=== PATIENT | female | born 1925 | race Caucasian/White ===

== ENCOUNTER → 2016-08-14 | Outpatient (CLI) | payer OTHER ==
[~2016-08-14] MED LIST: ACET-1256 PO; ASPI1TAB83 PO; DOCU-94 PO; GLIM4TAB2 PO; INSDGIPEN SC; LEVO88TA PO; METF1TAB53 PO; METO50TA16 PO; NMN5 PO; NTRP PO; POLY335019 PO; PRAV20TA PO; REPA1TAB42 PO; SENN-61 PO; TRAM-10 PO; TRIA75TA53 PO; ZOLP5TAB PO
== END | disposition home or self-care (01) ==
LOC: C.LABSPEC 12:16
PROVIDERS: ATTEND Internal Medicine
DX: R19.7 Diarrhea, unspecified (principal)

== ENCOUNTER → 2016-09-10 | Outpatient (CLI) | payer OTHER ==
[2016-09-10 12:45] LABS: THYROID STIMULATING HORMONE 0.567 uIu/ml (0.300-4.500)
== END | disposition home or self-care (01) ==
LOC: C.LABBFT 10:21
PROVIDERS: ATTEND Internal Medicine
DX: E03.9 Hypothyroidism, unspecified (principal)

== ENCOUNTER 2016-09-22 11:16 | Inpatient (IN) | payer OTHER ==
[2016-09-22] VITALS (14 sets, daily range): BP systolic 70–94; BP diastolic 43–65; PULSE 81–104; TEMP 36.5; O2SAT 93–99
[~2016-09-22] VITALS: Ht 139.7 cm; Wt 69.0 kg
[2016-09-22] MEDS ORDERED: DOCU-94 PO (11:57)
[2016-09-22] MEDS ORDERED: INSDGIPEN SC (11:57)
[2016-09-22] MEDS ORDERED: METO50TA16 PO (11:57)
[2016-09-22] MEDS ORDERED: TRAM-10 PO (11:57)
[2016-09-22] MEDS ORDERED: NMN5 PO (11:57)
[2016-09-22] MEDS ORDERED: PRAV20TA PO (11:57)
[2016-09-22] MEDS ORDERED: POLY335019 PO (11:57)
[2016-09-22] MEDS ORDERED: TRIA75TA53 PO (11:57)
[2016-09-22] MEDS ORDERED: ASPI1TAB83 PO (11:57)
[2016-09-22] MEDS ORDERED: LEVO88TA PO (11:57)
[2016-09-22] MEDS ORDERED: GLIM4TAB2 PO (11:57)
[2016-09-22] MEDS ORDERED: ACET-1256 PO (11:57)
[2016-09-22] MEDS ORDERED: SENN-61 PO (11:57)
[2016-09-22] MEDS ORDERED: METF1TAB53 PO (11:57)
[2016-09-22] MEDS ORDERED: ZOLP5TAB PO (11:57)
[2016-09-22] MEDS ORDERED: ONDANSETRON INJ 2 MG/ML 2 ML VIAL IV STA (12:18)
[2016-09-22] MEDS ORDERED: SODIUM CHLORIDE 0.9% 1000ML 1,000 ML IV STA (12:18)
[2016-09-22 13:19] LABS: BASO % 0.1 %; BASO ABS # 0.01 K/uL (0-0.2); COMPLETE YES; HEMATOCRIT 47.9 % (37-47); IG% 0.4 %; LYMPH % 11.7 %; MEAN CORPUSCULAR HEMOGLOBIN 30.9 pg (25-34); MEAN CORPUSCULAR HGB CONC 34.7 g/dl (32-36); MEAN PLATELET VOLUME 9.9 fL (7.4-10.4); MONO % 11.7 %; NEUT % 76.1 %; PLATELET COUNT 463 K/uL (130-400); RED BLOOD COUNT 5.38 M/uL (4.2-5.4); WHITE BLOOD COUNT 11.07 K/uL (4.8-10.8)
--- NOTE | 2016-09-22 13:34 | DIAGNOSTIC IMAGING REPORT ---
ABDOMEN 2VIEW W/PA CHEST RTN CLINICAL HISTORY: Abdominal pain and nausea COMPARISON STUDY: No previous studies for comparison. FINDINGS: There are low lung volumes. There are surgical clips in both axillary regions. There is mild elevation right hemidiaphragm. No free air is visualized. Supine and decubitus views the abdomen reveal multiple dilated small bowel loops with multiple air-fluid levels. There is a paucity of colonic gas. The findings are indicative of a small bowel obstruction. There are eggshell calcifications within the left upper quadrant suggestive of splenic artery aneurysms. The largest measures 23 mm. IMPRESSION: 1. Small bowel obstructive pattern 2. No evidence of free air 3. Suspected splenic artery aneurysm Electronically signed by: Ahmet Kaur M.D. 09/22/2016 1:33 PM Dictated Date/Time: 09/22/2016 1:31 PM
[2016-09-22 13:37] LABS: BUN/CREATININE RATIO 35.1 (10-20); CALCIUM 8.1 mg/dl (8.5-10.1); CREATININE 2.1 mg/dl (0.60-1.20); POTASSIUM 5.1 mmol/L (3.5-5.1)
--- NOTE | 2016-09-22 14:14 | DIAGNOSTIC IMAGING REPORT ---
CT OF THE ABDOMEN AND PELVIS WITHOUT CONTRAST CLINICAL HISTORY: Abdominal pain. COMPARISON STUDY: No previous studies for comparison. TECHNIQUE: Axial images of the abdomen and pelvis were obtained without IV contrast. Images were reviewed in the axial, sagittal, and coronal planes. FINDINGS: Visualized portions of the lower chest demonstrate suspected post surgical finding within the right breast. There is mild cardiomegaly. This extensive coronary artery calcification. A small right pleural effusion is noted with associated atelectasis. No pneumatosis, free air or portal venous gas is present. 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 There is no evidence for rupture. A moderate sized hiatal hernia is noted. There is a 12.9 x 7.7 cm hypodense mass-like focus within the anterior segment of the right hepatic lobe and the medial segment of the left hepatic lobe. This is indeterminate. Geographic fatty infiltration is noted within the liver as well. A 2.2 cm lesion arising from the upper pole of the left kidney is suboptimally assessed on this unenhanced exam but this measures water attenuation. This may reflect a cyst. There is no hydronephrosis. Unenhanced images of the spleen, adrenal glands and pancreas are unremarkable. There are small bowel is fluid-filled and moderately dilated. Note is made of gas within the gallbladder as well as pneumobilia. There is a large impacted gallstone within the terminal ileum just proximal to the ileocecal valve that measures 3.1 x 2 cm. IMPRESSION: 1. Findings consistent with a high-grade small bowel obstruction due to an impacted gallstone within the terminal ileum, just proximal to the ileocecal valve. 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 The findings represent gallstone ileus. Surgical consultation is recommended. 2. 12.9 x 7.7 cm mass-like hypodense focus within the liver. This may reflect fatty infiltration. A mass could appear similar. A follow-up nonemergent MRI of the liver is recommended. 3. 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 No rupture. 4. Small right pleural effusion. 5. Moderate sized hiatal hernia. 6. Gas within the bladder, a nonspecific finding which may be related to recent instrumentation. Electronically signed by: Stefano Drew M.D. 09/22/2016 2:12 PM Dictated Date/Time: 09/22/2016 2:03 PM
[2016-09-22] MEDS ORDERED: SODIUM CHLORIDE 0.9% 500ML 500 ML IV STA (14:33)
[2016-09-22] MEDS ORDERED: DEXTROSE 5% 250ML 250 ML IV STA (14:41)
--- NOTE | 2016-09-22 14:41 | EMERGENCY ROOM VISIT NOTE ---
History Report prepared by Rachel: Tasha Chacko Under the Supervision of: Dr. Kali Leija D.O. First contact with patient: 12:09 Chief Complaint: ABDOMINAL PAIN Stated Complaint: ABDOMINAL PAIN Nursing Triage Summary: Patient arrives via ALS from home with complaints of right upper and lower abdominal pain, patient states pain is "crampy" and is a 5/10 during movement, 0/10 while laying still. PT has not had BM in a week, she has tried miralax and senna and nothing is working. She has also been lethargic, not eating/drinking well over the last week. History of Present Illness The patient is an 89 year old female who presents to the Emergency Room with complaints of intermittent right upper and right lower abdominal pain that began one week ago. She currently rates her discomfort as a 5/10 in severity. The patient states that each episode of pain lasts a few minutes. She describes her pain as an ache. The patient's son notes that the patient has not had a bowel movement in one week and has been vomiting every day for the past week. He notes that the patient has had a decrease in appetite. 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 He states that the patient is currently undergoing treatment. The patient's son states that the patient has been increasingly weak over the past week. The patient's family denies the patient having any history of COPD. They note that the patient had a laparoscopy when the doctors initially thought that the patient had gallstones. The family notes that during the laparoscopy the doctors found the tumor, noting that it was biopsied. Source of History: patient, family (son) Onset: one week ago Position: abdomen (right lower and right upper) Symptom Intensity: 5/10 Quality: ache Timing: intermittent Associated Symptoms: + vomiting, + weakness Note: Associated Symptoms: decrease in appetite Review of Systems See HPI for pertinent positives & negatives. A total of 10 systems reviewed and were otherwise negative. Past Medical & Surgical Medical Problems: (1) DM type 2 (diabetes mellitus, type 2) (2) Dyslipidemia (3) Gallbladder cancer (4) History of atrial fibrillation (5) History of breast cancer (6) HTN (hypertension) (7) Neuroendocrine carcinoma Surgical Problems: (1) History of hysterectomy (2) History of liver biopsy (3) S/P laparoscopic cholecystectomy (4) S/P partial mastectomy Family History Non-contributory secondary to age. Social History Smoking Status: Never Smoker Marital Status: Housing Status: lives with family Occupation Status: retired Current/Historical Medications Scheduled Aspirin (Aspirin), 81 MG PO DAILY Docusate Sodium (Colace), 100 MG PO PRN Glimepiride (Glimepiride), 4 MG PO TID Insulin Glargine (Lantus Solostar), 22 UNITS SC QAM Levothyroxine Sodium (Synthroid), 88 MCG PO DAILY Memantine (Namenda), Unknown Dose PO QAM Metformin Hcl (Glucophage Ext Rel), 1,000 MG PO BID Metoprolol Tartrate (Lopressor) (Lopressor), 50 MG PO QAM Pravastatin (Pravachol ), 20 MG PO HS Senna (Senokot), 1 TAB PO PRN Triamterene/Hctz (Maxzide 75MG/50MG), 1 TAB PO NEEDED Scheduled PRN Acetaminophen (Tylenol), 500-1,000 MG PO DAILY PRN for Pain Polyethylene Glycol 3350 (Miralax), 17 GM PO DAILY PRN for Constipation Tramadol (Ultram), 25 MG PO DAILY PRN for Pain Tramadol (Ultram), 50 MG PO DAILY PRN for Pain Zolpidem Tartrate (Ambien), Unknown Dose PO HS PRN for Sleep Allergies Coded Allergies: No Known Allergies (Unverified , 09/22/16) Physical Exam Vital Signs Date Time Temp Pulse Resp B/P Pulse Ox O2 Delivery O2 Flow Rate FiO2 09/22/16 13:34 98 18 111/55 93 Room Air 09/22/16 11:27 36.9 93 24 124/76 95 Room Air Physical Exam CONSTITUTIONAL/VITAL SIGNS: Reviewed / noted above. GENERAL: Non-toxic in appearance. INTEGUMENTARY: Warm, dry, and [place]. HEAD: Normocephalic. EYES: without scleral icterus or trauma. ENT/OROPHARYNX: clear and moist. LYMPHADENOPATHY/NECK: Is supple without lymphadenopathy or meningismus. RESPIRATORY: Lungs clear and equal. CARDIOVASCULAR: Regular rate and rhythm. GI/ABDOMEN: Decreased bowel sounds. Soft and nontender. No organomegaly or pulsatile mass. No rebound or guarding. EXTREMITIES: Warm and well perfused. BACK: No CVA tenderness. NEUROLOGICAL: Intact without focal deficits. PSYCHIATRIC: normal affect. MUSCULOSKELETAL: Normally developed with good muscle tone. Medical Decision & Procedures ER Provider Diagnostic Interpretation: Radiology results as stated below per my review and radiologist interpretation: ABDOMEN 2VIEW W/PA CHEST RTN CLINICAL HISTORY: Abdominal pain and nausea COMPARISON STUDY: No previous studies for comparison. FINDINGS: There are low lung volumes. There are surgical clips in both axillary regions. There is mild elevation right hemidiaphragm. No free air is visualized. Supine and decubitus views the abdomen reveal multiple dilated small bowel loops with multiple air-fluid levels. There is a paucity of colonic gas. The findings are indicative of a small bowel obstruction. There are eggshell calcifications within the left upper quadrant suggestive of splenic artery aneurysms. The largest measures 23 mm. IMPRESSION: 1. Small bowel obstructive pattern 2. No evidence of free air 3. Suspected splenic artery aneurysm Electronically signed by: Ahmet Kaur M.D. 09/22/2016 1:33 PM Dictated Date/Time: 09/22/2016 1:[address] OF THE ABDOMEN AND PELVIS WITHOUT CONTRAST CLINICAL HISTORY: Abdominal pain. COMPARISON STUDY: No previous studies for comparison. TECHNIQUE: Axial images of the abdomen and pelvis were obtained without IV contrast. Images were reviewed in the axial, sagittal, and coronal planes. FINDINGS: Visualized portions of the lower chest demonstrate suspected post surgical finding within the right breast. There is mild cardiomegaly. This extensive coronary artery calcification. A small right pleural effusion is noted with associated atelectasis. No pneumatosis, free air or portal venous gas is present. 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 There is no evidence for rupture. A moderate sized hiatal hernia is noted. There is a 12.9 x 7.7 cm hypodense mass-like focus within the anterior segment of the right hepatic lobe and the medial segment of the left hepatic lobe. This is indeterminate. Geographic fatty infiltration is noted within the liver as well. A 2.2 cm lesion arising from the upper pole of the left kidney is suboptimally assessed on this unenhanced exam but this measures water attenuation. This may reflect a cyst. There is no hydronephrosis. Unenhanced images of the spleen, adrenal glands and pancreas are unremarkable. There are small bowel is fluid-filled and moderately dilated. Note is made of gas within the gallbladder as well as pneumobilia. There is a large impacted gallstone within the terminal ileum just proximal to the ileocecal valve that measures 3.1 x 2 cm. IMPRESSION: 1. Findings consistent with a high-grade small bowel obstruction due to an impacted gallstone within the terminal ileum, just proximal to the ileocecal valve. 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 The findings represent gallstone ileus. Surgical consultation is recommended. 2. 12.9 x 7.7 cm mass-like hypodense focus within the liver. This may reflect fatty infiltration. A mass could appear similar. A follow-up nonemergent MRI of the liver is recommended. 3. 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 No rupture. 4. Small right pleural effusion. 5. Moderate sized hiatal hernia. 6. Gas within the bladder, a nonspecific finding which may be related to recent instrumentation. Electronically signed by: Stefano Drew M.D. 09/22/2016 2:12 PM Dictated Date/Time: 09/22/2016 2:03 PM Laboratory Results 09/22/16 12:55 Red Blood Count 5.38, Mean Corpuscular Volume 89.0, Mean Corpuscular Hemoglobin 30.9, Mean Corpuscular Hemoglobin Concent 34.7, Mean Platelet Volume 9.9, Neutrophils (%) (Auto) 76.1, Lymphocytes (%) (Auto) 11.7, Monocytes (%) (Auto) 11.7, Eosinophils (%) (Auto) 0.0, Basophils (%) (Auto) 0.1, Neutrophils # (Auto ) 8.43, Lymphocytes # (Auto) 1.30, Monocytes # (Auto) 1.29, Eosinophils # (Auto ) 0.00, Basophils # (Auto) 0.01 09/22/16 12:55 Test 09/22/16 12:55 09/22/16 14:35 09/22/16 14:36 White Blood Count 11.07 K/uL (4.8-10.8) Red Blood Count 5.38 M/uL (4.2-5.4) Hemoglobin 16.6 g/dL (12.0-16.0) Hematocrit 47.9 % (37-47) Mean Corpuscular Volume 89.0 fL (80-100) Mean Corpuscular Hemoglobin 30.9 pg (25-34) Mean Corpuscular Hemoglobin Concent 34.7 g/dl (32-36) Platelet Count 463 K/uL (130-400) Mean Platelet Volume 9.9 fL (7.4-10.4) Neutrophils (%) (Auto) 76.1 % Lymphocytes (%) (Auto) 11.7 % Monocytes (%) (Auto) 11.7 % Eosinophils (%) (Auto) 0.0 % Basophils (%) (Auto) 0.1 % Neutrophils # (Auto) 8.43 K/uL (1.4-6.5) Lymphocytes # (Auto) 1.30 K/uL (1.2-3.4) Monocytes # (Auto) 1.29 K/uL (0.11-0.59) Eosinophils # (Auto) 0.00 K/uL (0-0.5) Basophils # (Auto) 0.01 K/uL (0-0.2) RDW Standard Deviation 48.2 fL (36.4-46.3) RDW Coefficient of Variation 15.0 % (11.5-14.5) Immature Granulocyte % (Auto) 0.4 % Immature Granulocyte # (Auto) 0.04 K/uL (0.00-0.02) Anion Gap 17.0 mmol/L (3-11) Est Creatinine Clear Calc Drug Dose 13.6 ml/min Estimated GFR () 23.8 Estimated GFR (Non- 20.5 BUN/Creatinine Ratio 35.1 (10-20) Lactic Acid Level 4.3 mmol/L (0.4-2.0) Calcium Level 8.1 mg/dl (8.5-10.1) Total Bilirubin 1.2 mg/dl (0.2-1) Direct Bilirubin 0.5 mg/dl (0-0.2) Aspartate Amino Transf (AST/SGOT) 88 U/L (15-37) Alanine Aminotransferase (ALT/SGPT) 34 U/L (12-78) Alkaline Phosphatase 350 U/L (45-117) Total Protein 6.5 gm/dl (6.4-8.2) Albumin 2.5 gm/dl (3.4-5.0) Lipase 41 U/L (73-393) Urine Color DK YELLOW Urine Appearance CLOUDY (CLEAR) Urine pH 5.0 (4.5-7.5) Urine Specific [place] 1.023 (1.000-1.030) Urine Protein 1+ (NEG) Urine Glucose (UA) NEG (NEG) Urine Ketones TRACE (NEG) Urine Occult Blood NEG (NEG) Urine Nitrite NEG (NEG) Urine Bilirubin NEG (NEG) Urine Urobilinogen NEG (NEG) Urine Leukocyte Esterase SMALL (NEG) Bedside Glucose 56 mg/dl (70-90) Laboratory results as stated above per my review. Medications Administered Medications (Trade) Dose Ordered Sig/Kurt Route Start Time Stop Time Status Last Admin Dose Admin Sodium Chloride (Nss 1000ml) 1,000 ml @ 200 mls/hr Q5H STAT IV 09/22/16 12:18 09/22/16 17:17 09/22/16 12:33 200 MLS/HR Ondansetron HCl 4 mg 4 mg NOW STAT IV 09/22/16 12:18 09/22/16 12:21 DC 09/22/16 12:33 4 MG Sodium Chloride 500 ml @ 999 mls/hr Q31M STAT IV 09/22/16 14:33 09/22/16 15:03 DC 09/22/16 14:33 999 MLS/HR Dextrose (D5 250ml) 250 ml @ 125 mls/hr Q2H STAT IV 09/22/16 14:41 09/22/16 16:40 09/22/16 14:41 125 MLS/HR ED Course 1210: Previous medical records were reviewed. The patient was evaluated in room B7. A complete history and physical examination was performed. 1218: Ordered Zofran Inj 4 mg IV, Sodium Chloride 1000 ml @ 200 mls/hr IV. 1417: I reevaluated the patient and she is resting comfortably. I discussed the exam findings with her and I discussed the treatment plan. Her and her family verbalized complete understanding and agreement. The patient will be evaluated for further treatment. 1420: I discussed the patients radiology reports with Dr. Drew, Radiology. 1425: I discussed the patients case with the [facility]. They are going to come evaluate the patient. Medical Decision Differential considered: pancreatitis, hepatitis, or acute cholecystitis, AAA, UTI, pyelonephritis, kidney stones, appendicitis, diverticulitis, shingles, bowel obstruction mesenteric ischemia, intussusception,hernia. This is an 89-year-old female who presents to the ED with a chief complaint of mainly upper abdominal pain as well as nausea and vomiting and no bowel movement. She has had the symptoms for about a week. She has had decreased oral intake. She states that her pain comes and goes and feels like an ache. She has been, increasingly weak according to family. She was at [facility] recently been diagnosed with gallbladder cancer. She is currently undergoing hormone therapy for this. She has moved from the [facility] to [facility] to be with family. She is currently going to be seeing Dr. Diaz. She has a history of diabetes, high cholesterol, hypothyroid and hypertension. Her exam reveals diminished bowel sounds. She has mild distention. Acute abdominal series and CT scan of the abdomen and pelvis was performed reveals a small bowel obstruction due to a large gallstone in the area of the terminal ileum. White blood count was 11. The BUN is 74 and the creatinine is 2.1. Lactate level is elevated. The patient was treated with IV fluids and IV Zofran. She and family were told the results. I spoke to general surgery. They will see the patient for further inpatient evaluation. Consults Time Called: 1417 Consulting Physician: [facility] Returned Call: [phone] I discussed the patients case with the [facility]. They are going to come evaluate the patient. Impression Primary Impression: Small bowel obstruction Additional Impressions: Gallstone ileus Dehydration ARF (acute renal failure) Scribe Attestation The scribe's documentation has been prepared under my direction and personally reviewed by me in its entirety. I confirm that the note above accurately reflects all work, treatment, procedures, and medical decision making performed by me. Departure Information Dispostion Being Evaluated By Surgeon Dave Montes M.D. (PCP) Patient Instructions My [facility] Problem Qualifiers
[2016-09-22 14:57] LABS: URINE APPEARANCE CLOUDY (CLEAR); URINE COLOR DK YELLOW; URINE EPITHELIAL CELL AUTO 20-30 /lpf (0-5); URINE NITRITE NEG (NEG); URINE SPECIFIC GRAVITY 1.023 (1.000-1.030); UROBILINOGEN NEG (NEG); ZZURINE CULT IF INDIC CATH NO
[2016-09-22 15:08] LABS: MANUAL MICROSCOPIC REQUIRED? NO; REVIEW REQ? YES
--- NOTE | 2016-09-22 15:08 | Pre-Operative Consultation ---
History General Date of Service: Sep 22, 2016. HPI HPI: The patient is a 89 year old female being seen at the request of Dr. Stafford for a gallstone ileus. 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 She was in the hospital for about 6 days postop with an episode of a fib, difficult to control sugars requiring endocrinology consult and insulin. Also with difficulty with constipation and was treated intensively with a bowel regimen. Since discharge, she has seen oncology at [facility] and started sandostatin (next dose due on Wednesday). She was at home with her family doing well until recently when she had nausea and increased abdominal pain. Vomiting almost daily. Pain is crampy, 5/10 in intensity. No bowel movement for past week. Brought to the ER with CT scan showing a gallstone ileus with stone impacted proximal to ileocecal valve. More confused today. Historian: family Anticipated Procedure: exploratory laparotomy Procedure Urgency: Emergency Risk Assessment Previous Exercise Tolerance: asymptomatic Dressing (1 MET), asymptomatic Eating (1 MET), asymptomatic Self-care (1 MET), asymptomatic Using toilet (1 MET ) Major Risk Factors: no known hx of decompensated CHF, no known hx of recent NM , no known hx of severe valvular disease, no known hx of unstable or severe angina Pre-Op Conditions: + diabetes Problem List Medical Problems: (1) ARF (acute renal failure) Status: Acute (2) Dehydration Status: Acute (3) Gallstone ileus Status: Acute (4) Small bowel obstruction Status: Acute Medical & Surgical History Past Medical History: cancer - breast, diabetes, hypertension, other ( dyslipidemai) Past Surgical History: other (hysteroscopy, laparoscopic liver biopsy) Family History Family History: no pertinent family hx Social History Smoking Status: Never Smoker Marital status: Occupation status: retired Allergies Allergies: Coded Allergies: No Known Allergies (Unverified , 09/22/16) Medications Current Inpatient Medications Current Inpatient Medications Medications (Trade) Dose Ordered Sig/Kurt Route Start Time Stop Time Status Last Admin Dose Admin Sodium Chloride 1,000 ml @ 200 mls/hr Q5H STAT IV 09/22/16 12:18 09/22/16 17:17 09/22/16 12:33 200 MLS/HR Sodium Chloride 500 ml @ 999 mls/hr Q31M STAT IV 09/22/16 14:33 09/22/16 15:03 09/22/16 14:33 999 MLS/HR Dextrose (D5 250ml) 250 ml @ 125 mls/hr Q2H STAT IV 09/22/16 14:41 09/22/16 16:40 Review of Systems Review of Systems Constitutional: weakness Eyes: reports: no symptoms ENT: reports: no symptoms reported Cardiovascular: reports: other (history of a fib ) Respiratory: reports: no symptoms reported Gastrointestinal: see HPI Genitourinary - Female: reports: no symptoms Musculoskeletal: no symptoms reported Integumentary: no symptoms reported Neurologic: reports: no symptoms Hematologic / Lymphatic: no symptoms Physical Exam Physical Exam General Appearance: + other (frail ), No distress Ears, Nose, Throat: + normal ENT inspection Neck: No abnormal inspection, No tracheal deviation Respiratory: No accessory muscle use, No chest tenderness, No decreased breath sounds Cardiovascular: No JVD, No abnormal rate, No diastolic murmur, No systolic murmur Abdomen: + abnormal bowel sounds (hyperactive), + distension, + guarding (RLQ) , + tenderness (mildly tender), No hernia Extremities: No calf tenderness, No deformity, No edema Neurologic/Psychiatric: No abnormal orchid hand II-XII, No abnormal gait, No decreased LOC Skin Characteristics: No abnormal color, No cyanosis Diagnostics Labs Labs Results Past 24 Hours Test 09/22/16 12:55 09/22/16 14:22 09/22/16 14:35 09/22/16 14:36 Range/Units White Blood Count 11.07 4.8-10.8 K/uL Red Blood Count 5.38 4.2-5.4 M/uL Hemoglobin 16.6 12.0-16.0 g/dL Hematocrit 47.9 37-47 % Mean Corpuscular Volume 89.0 80-100 fL Mean Corpuscular Hemoglobin 30.9 25-34 pg Mean Corpuscular Hemoglobin Concent 34.7 32-36 g/dl Platelet Count 463 130-400 K/uL Mean Platelet Volume 9.9 7.4-10.4 fL Neutrophils (%) (Auto) 76.1 % Lymphocytes (%) (Auto) 11.7 % Monocytes (%) (Auto) 11.7 % Eosinophils (%) (Auto) 0.0 % Basophils (%) (Auto) 0.1 % Neutrophils # (Auto) 8.43 1.4-6.5 K/uL Lymphocytes # (Auto) 1.30 1.2-3.4 K/uL Monocytes # (Auto) 1.29 0.11-0.59 K/uL Eosinophils # (Auto) 0.00 0-0.5 K/uL Basophils # (Auto) 0.01 0-0.2 K/uL RDW Standard Deviation 48.2 36.4-46.3 fL RDW Coefficient of Variation 15.0 11.5-14.5 % Immature Granulocyte % (Auto) 0.4 % Immature Granulocyte # (Auto) 0.04 0.00-0.02 K/uL Sodium Level 134 136-145 mmol/L Potassium Level 5.1 3.5-5.1 mmol/L Chloride Level 93 98-107 mmol/L Carbon Dioxide Level 24 21-32 mmol/L Anion Gap 17.0 3-11 mmol/L Blood Urea Nitrogen 74 7-18 mg/dl Creatinine 2.10 0.60-1.20 mg/dl Est Creatinine Clear Calc Drug Dose 13.6 ml/min Estimated GFR () 23.8 Estimated GFR (Non- 20.5 BUN/Creatinine Ratio 35.1 10-20 Random Glucose 65 70-99 mg/dl Lactic Acid Level 4.3 0.4-2.0 mmol/L Calcium Level 8.1 8.5-10.1 mg/dl Total Bilirubin 1.2 0.2-1 mg/dl Direct Bilirubin 0.5 0-0.2 mg/dl Aspartate Amino Transf (AST/SGOT) 88 15-37 U/L Alanine Aminotransferase (ALT/SGPT) 34 12-78 U/L Alkaline Phosphatase 350 45-117 U/L Total Protein 6.5 6.4-8.2 gm/dl Albumin 2.5 3.4-5.0 gm/dl Lipase 41 73-393 U/L Bedside Glucose 51 56 70-90 mg/dl Lab Interpretation Lab Interpretation: labs were reviewed Diagnostic Radiology Diagnostic Radiology CT scan shows gallstone ileus with 3 cm stone impacted proximal to ileocecal valve Impression Assessment and Plan Assessment and Plan 89 yr old frail women with hepatic neuroendocrine tumor treated with sandostatin who now presents with gallstone ileus and impacted stone causing a small bowel obstruction. Discussed need for urgent exploratory laparotomy with enterotomy and removal of stone, possible need for bowel resection. Risks including , infection, prolonged hospital stay, heart attack, pneumonia all discussed. Family and pt have consented to proceed. Will ask medicine to see / admit given her other medical issues and complicated postop course following a laparoscopic procedure.
[2016-09-22 15:12] LABS: URINE BILIRUBIN NEG (NEG)
[2016-09-22] MEDS ORDERED: FENTANYL CITRATE INJ 50 MCG/1 ML 2 ML VIAL ONE ×2 (15:12→16:34)
[2016-09-22] MEDS ORDERED: ONDANSETRON INJ 2 MG/ML 2 ML VIAL ONE (15:12)
[2016-09-22] MEDS ORDERED: GLYCOPYRROLATE INJ 0.2 MG/ML VIAL ONE (15:12)
[2016-09-22] MEDS ORDERED: ROCURONIUM BROMIDE 10 MG/ML 5 ML VIAL ONE (15:12)
[2016-09-22] MEDS ORDERED: LIDOCAINE HCL 2% 2 ML VIAL (20MG/ML) ONE (15:12)
[2016-09-22] MEDS ORDERED: PROPOFOL IV EMULSION 10 MG/ML 20 ML VIAL IV ONE (15:12)
[2016-09-22] MEDS ORDERED: DEXAMETHASONE SOD INJ 4 MG/ML VIAL ONE (15:12)
[2016-09-22] MEDS ORDERED: NEOSTIGMINE METHYLSULFATE 5 MG/5 ML SYR ONE (15:12)
[2016-09-22] MEDS ORDERED: MoRPHine SULFATE 2 MG/ML CARP ONE (15:13)
[2016-09-22] MEDS ORDERED: CEFAZOLIN IV 2,000 MG/60 ML D5W IV ONE (15:43)
[2016-09-22] MEDS ORDERED: NURSING VERBAL MED ORDER ONE (15:45)
[2016-09-22] MEDS ORDERED: DEXTROSE 50% 50 ML SYR ONE ×2 (16:27→22:41)
[2016-09-22] MEDS ORDERED: EpHEDrine SULFATE 50MG/5ML SYR ONE (17:15)
[2016-09-22] MEDS ORDERED: PHENYLEPHRINE 100MCG/ML 5ML SYR ONE (17:15)
[2016-09-22] MEDS ORDERED: BUPIVACAINE 0.5 % 5 MG/1 ML MPF 30ML VIAL INJ ONE (17:33)
[2016-09-22] MEDS ORDERED: PHENYLEPHRINE HCL INJ 10 MG/ML VIAL ONE (17:40)
--- NOTE | 2016-09-22 18:15 | [facility] Post Operative Brief Note ---
Immediate Operative Summary Operative Date Sep 22, 2016. Pre-Operative Diagnosis Small Bowel Obstruction with gallstone ileus Post-Operative Diagnosis same Procedure(s) Performed Exploratory Laparotomy,Enterotomy and removal of gallstone Surgeon Dr Silvia Brown Waste Picker Surgeon(s) None Estimated Blood Loss 5ML Findings large 3 cm rounded gallstone impacted just before ileocecal valve, no ischemia noted. Feculization of enteric contents with severely dilated small bowel. Fluids (cc crystalloids) 2400 cc Specimens A, Gallstone Drains none Anesthesia GET Complication(s) None Disposition Surgical ICU
[2016-09-22] MEDS ORDERED: PROPOFOL IV EMULSION 10 MG/ML 100 ML VIAL IV ONE (18:23)
[2016-09-22] MEDS ORDERED: D5NSS + 20MEQ KCL 1,000 ML IV SCH (18:30)
[2016-09-22] MEDS ORDERED: MoRPHine SULFATE 4 MG/ML 1 ML CARP\\VIAL IV PRN (18:30)
[2016-09-22] MEDS ORDERED: ONDANSETRON INJ 2 MG/ML 2 ML VIAL IV PRN (18:30)
[2016-09-22] MEDS ORDERED: MoRPHine SULFATE 2 MG/ML CARP IV PRN ×2 (18:30)
[2016-09-22 19:22] LABS: ISTAT ARTERIAL BLOOD GAS HCO3 24 meq/L (19-24); ISTAT ARTERIAL BLOOD GAS PCO2 46 mmHg (35-46); ISTAT ARTERIAL BLOOD GAS PO2 168 mmHg (80-95); ISTAT ARTERIAL BLOOD GAS pH 7.32 (7.35-7.45); ISTAT CARBON DIOXIDE 25 mEq/l (24-31)
--- NOTE | 2016-09-22 19:24 | Anesthesiology Progress Note ---
Anesthesia Post Op Note Date & Time Sep 22, 2016 at 19:20 Vital Signs Pain Intensity: 5.0 Vital Signs Past 12 Hours Date Time Temp Pulse Resp B/P Pulse Ox O2 Delivery O2 Flow Rate FiO2 09/22/16 18:59 36.5 101 19 148/87 93 Mechanical Ventilator 50 118/70 09/22/16 18:55 109 21 169/105 91 Mechanical Ventilator 10 143/78 09/22/16 18:55 109 21 169/105 91 Mechanical Ventilator 10 143/78 09/22/16 18:45 109 21 169/105 91 Mechanical Ventilator 10 143/78 09/22/16 18:35 105 19 157/102 91 Mechanical Ventilator 10 143/79 09/22/16 18:25 103 14 127/85 91 Ambu-Bag 10 118/67 09/22/16 18:15 90 18 108/87 93 Ambu-Bag 10 106/61 09/22/16 18:13 50 09/22/16 18:07 36.6 89 16 106/63 96 Ambu-Bag 10 91/54 09/22/16 13:34 98 18 111/55 93 Room Air 09/22/16 11:27 36.9 93 24 124/76 95 Room Air Notes Mental Status: alert / awake / arousable, participated in evaluation Pt Amnestic to Procedure: Yes Nausea / Vomiting: adequately controlled Pain: adequately controlled Airway Patency, RR, SpO2: stable & adequate BP & HR: stable & adequate Hydration State: stable & adequate Anesthetic Complications: no major complications apparent Patient was severely dehydrated on presentation. A line, RIJ cordis placed prior to induction. After line placement, patient did have AFib with RVR which spontaneously resolved with fluids and neosynephrine. This did recur one or two more times very briefly throughout the case. D50 was given to maintain FBG >60 and IV crystalloid was given for volume replacement. By the end of the case , the patient was hemodynamically stable and in sinus rhythm. However, given her large fluid recussitation and episodes of rapid afib, the decision to keep the patient intubated and sedated overnight was made. A full report was made to the vice president of procurement who will accept the patient.
[2016-09-22] MEDS ORDERED: PROPOFOL IV EMULSION 10 MG/ML 100 ML VIAL IV PRN (19:30)
--- NOTE | 2016-09-22 20:12 | OPERATIVE REPORT ---
DATE OF OPERATION: 09/22/2016 PREOPERATIVE DIAGNOSIS: Gallstone ileus. POSTOPERATIVE DIAGNOSIS: Same. OPERATIVE PROCEDURES: Exploratory laparotomy, enterotomy and removal of gallstones. SURGEON: Dr. Silvia Brown. SCALE ASSEMBLY SET UP WORKER: None. ANESTHESIA: General endotracheal anesthesia. ESTIMATED BLOOD LOSS: 10 mL. IV FLUIDS: 2400 mL. COMPLICATIONS: None. OPERATIVE FINDINGS: Severely distended small bowel with fecalization of enteric contents. A large 3 cm stone impacted before ileocecal valve, no evidence of ischemia in this region. INDICATIONS: Ms. Uribe is an 89-year-old woman who presented with a gallstone ileus. This was in the setting of recent laparoscopic liver biopsy with findings of a large neuroendocrine tumor. She was counseled regarding the need for urgent surgery to remove the impacted gallstone. She consented to proceed. PROCEDURE IN DETAIL: The patient received Ancef preoperatively. After the induction of general endotracheal anesthesia, she had placement of a nasogastric tube. Prior to the induction of anesthesia, she underwent placement of an arterial line and a right internal jugular Cordis by the anesthesiologist. She received IV fluid rehydration in order to allow her to undergo induction. She had placement of a Lui catheter and sequential compression devices. Her abdomen was then sterilely prepped and draped. A midline incision was made. This was carried down into the abdomen, severely distended bowel was noted. This was traced up to the ligament of Treitz and then distally, the terminal ileum was identified and the large gallstone could be seen to be impacted. There was no evidence of ischemia. A bowel clamp was placed proximal and an enterotomy created about 5 inches proximal to the terminal ileum. There was severe fecalization of the enteric contents which were suctioned. Laps had been placed around prior to this in order to keep the abdomen clean. The gallstone was milked back and then removed through the enterotomy. The enterotomy which had been created longitudinally was then closed transversely. This was done with 2 running 3-0 Vicryl sutures. Interrupted silk sutures were then used to invert the ends. The enterotomy was tested and noted to be tight. There was no evidence of any further leakage. Contents were milked past the enterotomy in order to double check. The abdomen was irrigated and suctioned clear. A Shabbir retractor was placed. Prior to this, a nasogastric tube was checked in position. There was a large tumor in the right upper quadrant that was palpated. The fascia was then closed over the Shabbir tractor with 2 running #1 PDS sutures. The wound was again irrigated and then the skin closed with wilber. 30 mL of 0.5% Marcaine were injected into the incision. The patient was taken intubated over to the recovery area. I attest to the content of the Intraoperative Record and any orders documented therein. Any exceptio ns are noted below.
[2016-09-22 20:23] LABS: INR 1.3 (0.9-1.1); PARTIAL THROMBOPLASTIN RATIO 1.1; PROTHROMBIN TIME (PATIENT) 13.7 SECONDS (9.0-12.0)
--- NOTE | 2016-09-22 21:42 | History and Physical ---
History & Physical Date & Time of Service: Sep 22, 2016 at 15:37 Chief Complaint: Abdominal Pain Primary Care Physician: Dave Diaz M.D. History of Present Illness Source: patient This is an 89 y/o female with PMHx of Insulin-dependent DM 2, HTN, Dyslipidemia and other problems as outlined below who presented to the ED c/o abdominal pain for the past few days. Per previous documentation pt describes the pain as 5/10 abd pain. Her sxs are assoc with N/V. Pt has a recent history of hepatic neuroendocrine tumor which was resected at [facility] in July. Pt was in the hospital for 6 days as her post-op course was complicated by episode of Afib and uncontrolled glucose. Since being discharged patient had been dong well until a few days ago when she developed abd pain. In the ED, vitals are stable. Pt is afebrile with mild leukocytosis and lactic acid 4.3. Creat 2.1. glucose 53. Abd/pelvis CT + gallstone ileus. Pt was seen by surgeon (Dr. Brown ) in the ED and taken emergently to the OR for ex lap with enterotomy and stone removal. Patient remained intubated post-operatively and will be monitored in the ICU overnight. Past Medical/Surgical History Medical Problems: (1) DM type 2 (diabetes mellitus, type 2) Status: Chronic (2) Dyslipidemia Status: Chronic (3) History of atrial fibrillation Permanent Comment: had new onset Afib with RVR July 2016, occurred postoperatively Status: Chronic (4) History of breast cancer Status: Chronic (5) HTN (hypertension) Status: Chronic (6) Neuroendocrine carcinoma Status: Chronic Surgical Problems: (1) History of hysterectomy Status: Chronic (2) History of liver biopsy Status: Chronic (3) S/P laparoscopic cholecystectomy Status: Chronic (4) S/P partial mastectomy Status: Chronic Social History Smoking Status: Never Smoker Marital Status: Occupational Status: retired Allergies Coded Allergies: No Known Allergies (Unverified , 09/22/16) Home Medications Scheduled Docusate Sodium (Colace), 100 MG PO PRN Glimepiride (Glimepiride), 4 MG PO TID Insulin Glargine (Lantus Solostar), 22 UNITS SC QAM Metformin Hcl (Glucophage Ext Rel), 1,000 MG PO BID Metoprolol Tartrate (Lopressor) (Lopressor), 50 MG PO QAM Potassium/Phosphorus/Sodium (Phos-Nak Powder Concentra), 2 PKT PO DAILY Pravastatin (Pravachol ), 20 MG PO HS Repaglinide (Prandin), 1 MG PO TID Senna (Senokot), 1 TAB PO PRN Scheduled PRN Polyethylene Glycol 3350 (Miralax), 17 GM PO DAILY PRN for Constipation Tramadol (Ultram), 50 MG PO DAILY PRN for Pain Review of Systems Unable to obtain ROS due to intubation/sedation Physical Exam Vital Signs Date Time Temp Pulse Resp B/P Pulse Ox O2 Delivery O2 Flow Rate FiO2 09/22/16 13:34 98 18 111/55 93 Room Air 09/22/16 11:27 36.9 93 24 124/76 95 Room Air General Appearance: WD/WN, no apparent distress, + pertinent finding (Pt is laying comfortably in bed; intubated ) Head: normocephalic, atraumatic Eyes: normal inspection Neck: supple Respiratory/Chest: chest non-tender, lungs clear (auscultated anteriorly), normal breath sounds, no respiratory distress Cardiovascular: regular rate, rhythm, no edema, no murmur Abdomen/GI: normal bowel sounds, soft, + pertinent finding (surgical dressing in place) Extremities/Musculoskelatal: normal inspection, no pedal edema Neurologic/Psych: + pertinent finding (sedated) Skin: warm/dry, + pallor Diagnostics Laboratory Results Results Past 24 Hours Test 09/22/16 12:55 09/22/16 14:22 09/22/16 14:35 09/22/16 14:36 Range/Units White Blood Count 11.07 4.8-10.8 K/uL Red Blood Count 5.38 4.2-5.4 M/uL Hemoglobin 16.6 12.0-16.0 g/dL Hematocrit 47.9 37-47 % Mean Corpuscular Volume 89.0 80-100 fL Mean Corpuscular Hemoglobin 30.9 25-34 pg Mean Corpuscular Hemoglobin Concent 34.7 32-36 g/dl Platelet Count 463 130-400 K/uL Mean Platelet Volume 9.9 7.4-10.4 fL Neutrophils (%) (Auto) 76.1 % Lymphocytes (%) (Auto) 11.7 % Monocytes (%) (Auto) 11.7 % Eosinophils (%) (Auto) 0.0 % Basophils (%) (Auto) 0.1 % Neutrophils # (Auto) 8.43 1.4-6.5 K/uL Lymphocytes # (Auto) 1.30 1.2-3.4 K/uL Monocytes # (Auto) 1.29 0.11-0.59 K/uL Eosinophils # (Auto) 0.00 0-0.5 K/uL Basophils # (Auto) 0.01 0-0.2 K/uL RDW Standard Deviation 48.2 36.4-46.3 fL RDW Coefficient of Variation 15.0 11.5-14.5 % Immature Granulocyte % (Auto) 0.4 % Immature Granulocyte # (Auto) 0.04 0.00-0.02 K/uL Sodium Level 134 136-145 mmol/L Potassium Level 5.1 3.5-5.1 mmol/L Chloride Level 93 98-107 mmol/L Carbon Dioxide Level 24 21-32 mmol/L Anion Gap 17.0 3-11 mmol/L Blood Urea Nitrogen 74 7-18 mg/dl Creatinine 2.10 0.60-1.20 mg/dl Est Creatinine Clear Calc Drug Dose 13.6 ml/min Estimated GFR () 23.8 Estimated GFR (Non- 20.5 BUN/Creatinine Ratio 35.1 10-20 Random Glucose 65 70-99 mg/dl Lactic Acid Level 4.3 0.4-2.0 mmol/L Calcium Level 8.1 8.5-10.1 mg/dl Total Bilirubin 1.2 0.2-1 mg/dl Direct Bilirubin 0.5 0-0.2 mg/dl Aspartate Amino Transf (AST/SGOT) 88 15-37 U/L Alanine Aminotransferase (ALT/SGPT) 34 12-78 U/L Alkaline Phosphatase 350 45-117 U/L Total Protein 6.5 6.4-8.2 gm/dl Albumin 2.5 3.4-5.0 gm/dl Lipase 41 73-393 U/L Bedside Glucose 51 56 70-90 mg/dl Urine Color DK YELLOW Urine Appearance CLOUDY CLEAR Urine pH 5.0 4.5-7.5 Urine Specific [place] 1.023 1.000-1.030 Urine Protein 1+ NEG Urine Glucose (UA) NEG NEG Urine Ketones TRACE NEG Urine Occult Blood NEG NEG Urine Nitrite NEG NEG Urine Bilirubin NEG NEG Urine Urobilinogen NEG NEG Urine Leukocyte Esterase SMALL NEG Diagnostic Radiology CT ABD/PELVIS IMPRESSION: 1. Findings consistent with a high-grade small bowel obstruction due to an impacted gallstone within the terminal ileum, just proximal to the ileocecal valve. 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 The findings represent gallstone ileus. Surgical consultation is recommended. 2. 12.9 x 7.7 cm mass-like hypodense focus within the liver. This may reflect fatty infiltration. A mass could appear similar. A follow-up nonemergent MRI of the liver is recommended. 3. 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 No rupture. 4. Small right pleural effusion. 5. Moderate sized hiatal hernia. 6. Gas within the bladder, a nonspecific finding which may be related to recent instrumentation. CHEST/ABDOMINAL XRAY IMPRESSION: 1. Small bowel obstructive pattern 2. No evidence of free air 3. Suspected splenic artery aneurysm Impression Assessment and Plan GALLSTONE ILEUS S/P STONE REMOVAL pt presented with abd pain assoc with N/V -admit to med/surg -pt is afebrile with leukocytosis >11k; lactic acid 4.3 -CT abd/pelvis + gallstone ileus (see above for full report) -s/p emergent ex lap performed by Dr. Silvia Brown -cont IVF and trend lactic acid -consult surgery to follow along -monitor HYPOTENSION -persistent hypotension (80s/60s) -cont IVF -hold metoprolol -monitor TERRANCE -creatinine currently elevated at 2.1 (baseline=0.8-1.0) -likely elevated due to dehydration from poor PO intake and GI losses -obtain renal US -consult nephro -continue to monitor daily and avoid nephrotoxic agents when able HYPOGLYCEMIA WITH H/O INSULIN-DEPENDENT DM 2 -recent A1C 7.2 -glucose 53 on arrival; patient received dextrose in ED -hold metformin, glimepiride and Prandin -pharmacy consulted for glycemic mgmt -monitor BSG AC 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 Youngblood. Please see his addendum for further details. Thanks! -Of note: patient will be followed by Dr. Leroy starting tomorrow AM. ATTENDING ADDENDUM care coordinated with KAYLYN Landeros please refer to her notes for full details, I agree with her notes patient seen and examined, records reviewed by myself as well on exam, patient s/p exploratory laparotomy, removal of impacted gallbladder stone remains intubated, sedated with propofol BP systolic 85 not in distress NG tube in place VS noted and reviewed not in distress, sedated, no accessory muscle use normal rate, regular rhythm, no murmurs clear breath sounds bilaterally non distended, soft no bipedal edema, erythema, warmth WBC 11k Crea 2.1 lactic acid 4.3 ASSESSMENT/PLAN> 89 year old female with recent diagnosis of Hepatic Neuroendocrine Tumor now on Palliative Chemo, DM on oral meds, presenting with abdominal pain. GALLSTONE ILEUS s/p Exploratory Laparotomy, Enterotomy, Removal of Impacted Gallbladder stone GALLBLADDER-DUODENUM FISTULA -- patient's BP on the low side post op additional NSS 500cc bolus ordered discussed with Chief Of Vital Statistics Team, may change Propofol tonight --on Cefazolin IV Q8h -- appreciate Gen Surg, Chief Of Vital Statistics SVC recommendations ACUTE RENAL FAILURE -- baseline crea 0.8 -- likely pre renal from poor oral intake -- D5NSS ordered (hypoglycemic on admission) -- check Renal US nephrology consulted HYPOGLYCEMIA -- in the setting of acute renal failure on oral DM meds -- D5NSS ordered BSGs q2h -- monitor ELEVATED LACTIC ACID -- IV fluids check serial lactic acid level other diagnoses and plan of care as per KAYLYN Landeros's notes Baljit Youngblood MD
[2016-09-22] MEDS ORDERED: NTRP PO (21:45)
[2016-09-22] MEDS ORDERED: REPA1TAB40 PO (21:45)
[2016-09-22] MEDS ORDERED: DexMEDEtomidine IV DRIP IV STA (21:46)
[2016-09-22] MEDS: THIAMINE HCL INJ 100 MG in SYRINGE 9 ML IV SCH (22:00)
[2016-09-22] MEDS: SODIUM CHLORIDE 0.9% 500ML 500 ML IV SCH (22:00)
--- NOTE | 2016-09-22 22:19 | DIAGNOSTIC IMAGING REPORT ---
SINGLE VIEW CHEST CLINICAL HISTORY: Line and tube placement. FINDINGS: An AP, portable, upright chest radiograph is compared to study performed earlier the same day 09/22/2016. The examination is degraded by portable technique and patient rotation. An endotracheal tube has been placed. The tip projects 7 mm above the aaron. An enteric tube projects below the diaphragm over the stomach. A right internal jugular central venous catheter is in place. The tip projects at the level of the diaphragm over the right atrium. The heart is normal for projection. There is atherosclerotic calcification of the thoracic aorta. There are low lung volumes. Bibasilar atelectasis is observed. Chronic interstitial thickening is noted. There is no airspace consolidation typical for pneumonia or large pleural effusion. No pneumothorax is seen. The skeletal structures are osteopenic. The bony thorax is grossly intact. 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 Surgical clips are present in the axilla bilaterally. Small bowel obstruction versus ileus is again noted in the upper abdomen. IMPRESSION: 1. An endotracheal tube has been placed. The tip projects 7 mm above the aaron. This should be pulled back. 2. An enteric tube projects below the diaphragm. 3. A right internal jugular central venous catheter has been placed. The tip of the catheter projects at the level of the diaphragm over the right atrium. No pneumothorax is seen post procedure. 4. Low lung volumes. No airspace consolidation is seen typical for pneumonia. Electronically signed by: Barak Clinton M.D. 09/22/2016 10:18 PM Dictated Date/Time: 09/22/2016 10:14 PM
[2016-09-22] MEDS ORDERED: D5W AND NSS 1,000 ML IV SCH (22:30)
[2016-09-22] MEDS ORDERED: NOREPINEPHRINE BIT INJ 8 MG in DEXTROSE 5% 500ML 500 ML IV PRN (22:40)
[2016-09-22] MEDS ORDERED: PHARMACY GLYCEMIC MGMT CONSULT PRN (22:45)
[2016-09-22] MEDS: CEFAZOLIN IV 1,000 MG in DEXTROSE 5% 50ML 50 ML IV SCH (22:55)
[2016-09-22] MEDS: DexMEDEtomidine HCL IV 200 MCG in SODIUM CHLORIDE 0.9% 50ML 48 ML IV PRN (23:03)
[2016-09-22 23:06] LABS: BUN/CREATININE RATIO 38.4 (10-20); CALCIUM 6.2 mg/dl (8.5-10.1); CREATININE 1.8 mg/dl (0.60-1.20); POTASSIUM 3.9 mmol/L (3.5-5.1)
[2016-09-22 23:25] LABS: PREALBUMIN 7.8 mg/dl (20-40)
[2016-09-22] MEDS ORDERED: CASPOFUNGIN INJ 70 MG in SODIUM CHLORIDE 0.9% 250ML 250 ML IV ONE (23:30)
[2016-09-22] MEDS ORDERED: PIPERACILL/TAZOBAC IV 4.5 GM in DEXTROSE 5% 100ML 100 ML IV ONE (23:30)
[2016-09-22] MEDS ORDERED: THIAMINE HCL INJ 100 MG in SYRINGE 9 ML IV ONE (23:30)
[2016-09-23] VITALS (41 sets, daily range): BP systolic 78–154; BP diastolic 48–79; PULSE 65–103; TEMP 36.3–36.8; O2SAT 93–99; Ht 139.7 cm; Wt 69.0 kg
--- NOTE | 2016-09-23 01:02 | Critical Care Consultation ---
Critical Care Consultation Date of Consultation: Sep 22, 2016. Attending Physician: Baljit Youngblood MD Reason for Consultation: Gall Stone Ileus and Small bowel obstruction with hypotension and hypoglycemia History of Present Illness Mary Uribe is an 89 yo female who presents to the ICU s/p post- surgical care for small bowel obstruction and gallstone ileus. All history is taken per her medical record documentation as patient arrived intubated and no family is present. Per emergency room report patient has been experiencing right upper quadrant pain for approximately one week without bowel movement and with daily vomiting during that time as well. Patient had tried MiraLAX and senna with no relief. Family complained that she has been lethargic, not eating or drinking well over the past week. The pain would wax and wane and last for approximately a few minutes as an ache. During her presentation in the emergency department she stated she was a 5 out of 10. Patient had previously undergone laparoscopic surgery for presumed gallstones were ultimately a tumor was biopsied. Patient is known to have a neuroendocrine carcinoma of the liver and a prior history of breast cancer with partial mastectomy. Patient's past medical history is significant for type 2 diabetes with both metformin and insulin use. Her glucose upon entering the ED today was in the low 60s; by the time she came to the ICU she was in the low 50s. It is my understanding that there is no complications during surgery and the patient did received 4 L of fluid resuscitation secondary to dehydration. Upon arriving in the ICU her SBP was running in the high 80s to low 90s on her arterial line with good waveform. Patient was still sedated with propofol and was unresponsive to verbal/pain stimulus. Per her outpatient records she was hospitalized at [facility] for her high-grade neuroendocrine tumor of the liver. She follows with Dr. Bravo Monroe of [facility] in [facility] for oncology. She underwent PET scanning which revealed a large hypermetabolic hepatic mass, FDG avid osseous metastasis at the posterior left acetabulum and hypermetabolic upper retroperitoneal lymph node worrisome also for metastasis. At her most recent oncology appointment in August 2016 she began treatment with octreotide 20 mg IM monthly and was recommended to have a follow-up CT in 3 months. ROS cannot be obtained secondary to patient sedation and intubation Past Medical/Surgical History Medical Problems: DM type 2 (diabetes mellitus, type 2) Dyslipidemia Hypertension Gallbladder cancer History of atrial fibrillation History of breast cancer HTN (hypertension) Neuroendocrine carcinoma of the liver Small bowel obstruction Gallstone ileus Hypotension Dehydration Hypoglycemia [place] Urinary Retention Uterine CA Insomnia Surgical Problems: History of hysterectomy 2/2 uterine CA History of liver biopsy S/P partial mastectomy Family History Noncontributory Social History Smoking Status: Never Smoker Marital Status: Housing Status: lives with family Occupation Status: retired Allergies Coded Allergies: No Known Allergies (Unverified , 09/22/16) Home Medications Scheduled Docusate Sodium (Colace), 100 MG PO PRN Glimepiride (Glimepiride), 4 MG PO TID Insulin Glargine (Lantus Solostar), 22 UNITS SC QAM Metformin Hcl (Glucophage Ext Rel), 1,000 MG PO BID Metoprolol Tartrate (Lopressor) (Lopressor), 50 MG PO QAM Potassium/Phosphorus/Sodium (Phos-Nak Powder Concentra), 2 PKT PO DAILY Pravastatin (Pravachol ), 20 MG PO HS Repaglinide (Prandin), 1 MG PO TID Senna (Senokot), 1 TAB PO PRN Scheduled PRN Polyethylene Glycol 3350 (Miralax), 17 GM PO DAILY PRN for Constipation Tramadol (Ultram), 50 MG PO DAILY PRN for Pain Current Inpatient Medications Current Inpatient Medications Medications (Trade) Dose Ordered Sig/Kurt Route Start Time Stop Time Status Last Admin Dose Admin Enoxaparin Sodium 30 mg 30 mg DAILY SQ 09/23/16 09:00 10/23/16 08:59 Cefazolin Sodium/ Dextrose (Ancef Iv/D5 50ml) 55 ml @ 100 mls/hr Q8H IV 09/22/16 23:00 09/23/16 07:32 09/22/16 22:55 100 MLS/HR Ondansetron HCl (Zofran Inj) 4 mg Q4H PRN IV 09/22/16 18:30 10/22/16 18:29 Morphine Sulfate (MoRPHine SULFATE INJ) 1 mg Q1H PRN IV 09/22/16 18:30 10/06/16 18:29 Morphine Sulfate (MoRPHine SULFATE INJ) 2 mg Q1H PRN IV 09/22/16 18:30 10/06/16 18:29 Morphine Sulfate (MoRPHine SULFATE INJ) 4 mg Q1H PRN IV 09/22/16 18:30 10/06/16 18:29 Propofol 1 dose 1 dose UD PRN IV 09/22/16 19:30 09/25/16 19:29 Dextrose/Sodium Chloride (D5W And Nss) 1,000 ml @ 125 mls/hr Q8H IV 09/22/16 22:30 10/22/16 22:29 09/22/16 22:55 125 MLS/HR Miscellaneous Information 1 ea 1 ea UD PRN N/A 09/22/16 22:45 10/22/16 22:44 Dexmedetomidine HCl 200 mcg/ Sodium Chloride 50 ml @ 0 mls/hr Q0M PRN IV 09/22/16 22:45 09/26/16 22:44 09/22/16 23:03 5 MLS/HR Thiamine HCl 100 mg/Syringe 10 ml @ 2 mls/min QAM IV 09/23/16 09:00 10/23/16 08:59 UNV Norepinephrine Bitartrate 8 mg/ Dextrose 508 ml @ 0 mls/hr Q0M PRN IV 09/22/16 22:40 10/22/16 22:39 09/22/16 23:49 21 MLS/HR Vancomycin HCl 1000 mg/Sodium Chloride 270 ml @ 125 mls/hr Q12 IV 09/23/16 09:00 10/03/16 08:59 UNV Caspofungin/ Sodium Chloride (Cancidas Inj/ Nss 250ml) 260 ml @ 250 mls/hr DAILY IV 09/23/16 09:00 10/03/16 08:59 UNV Miscellaneous Information (Nursing Heparin Flush Order) 1 ea PRN PRN N/A 09/23/16 00:00 10/23/16 00:00 UNV Review of Systems ROS cannot be obtained secondary to patient condition, sedation, and intubation. Physical Exam Date Time Temp Pulse Resp B/P Pulse Ox O2 Delivery O2 Flow Rate FiO2 09/22/16 23:30 50 09/22/16 20:31 50 09/22/16 19:35 36.5 104 16 114/75 94 Mechanical Ventilator 50 98/57 09/22/16 19:25 36.5 105 14 107/88 93 Mechanical Ventilator 50 107/88 09/22/16 19:15 36.5 103 13 116/75 94 Mechanical Ventilator 50 103/67 09/22/16 19:05 36.5 110 19 148/87 93 Mechanical Ventilator 50 118/70 09/22/16 18:59 36.5 101 19 148/87 93 Mechanical Ventilator 50 118/70 09/22/16 18:55 109 21 169/105 91 Mechanical Ventilator 10 143/78 09/22/16 18:55 109 21 169/105 91 Mechanical Ventilator 10 143/78 09/22/16 18:45 109 21 169/105 91 Mechanical Ventilator 10 143/78 09/22/16 18:35 105 19 157/102 91 Mechanical Ventilator 10 143/79 09/22/16 18:25 103 14 127/85 91 Ambu-Bag 10 118/67 09/22/16 18:15 90 18 108/87 93 Ambu-Bag 10 106/61 09/22/16 18:13 50 09/22/16 18:07 36.6 89 16 106/63 96 Ambu-Bag 10 91/54 09/22/16 13:34 98 18 111/55 93 Room Air 09/22/16 11:27 36.9 93 24 124/76 95 Room Air Vital Signs - as noted Laboratory Data - as noted Physical Exam: General - NAD, Awoke during changing of sedatives, followed simple commands Eyes - PERRL, EOMI No icterus, gaze conjugate ENT -ET tube 7.[address] to 21 cm at the lip Neck - Supple, trachea midline, no masses or lymphadenopathy, no JVD or bruits Lungs - No paradoxical chest wall movement, clear to auscultation bilaterally diminished at the bases, no wheezes, rales, or rhonchi Heart - Reg rate and rhythm, No murmur, rubs, clicks, or gallops appreciated Abdomen - BS present, no bruits noted, tympanic to percussion, soft, nontender, nondistended, no organomegaly, midline surgical dressing clean and dry and intact Extremities - No edema, pedal pulses intact Neuro - Batsheva Coma Scale: 11 Strength: movement of upper extremities equal and deliberate Reflexes: Bicep, brachioradialis, patellar, and plantar normal and equal CN:PERRL, EOMI, no facial asymmetry Laboratory Results Last 24 Hours Test 09/22/16 12:55 09/22/16 14:22 09/22/16 14:35 09/22/16 14:36 White Blood Count 11.07 K/uL Red Blood Count 5.38 M/uL Hemoglobin 16.6 g/dL Hematocrit 47.9 % Mean Corpuscular Volume 89.0 fL Mean Corpuscular Hemoglobin 30.9 pg Mean Corpuscular Hemoglobin Concent 34.7 g/dl Platelet Count 463 K/uL Mean Platelet Volume 9.9 fL Neutrophils (%) (Auto) 76.1 % Lymphocytes (%) (Auto) 11.7 % Monocytes (%) (Auto) 11.7 % Eosinophils (%) (Auto) 0.0 % Basophils (%) (Auto) 0.1 % Neutrophils # (Auto) 8.43 K/uL Lymphocytes # (Auto) 1.30 K/uL Monocytes # (Auto) 1.29 K/uL Eosinophils # (Auto) 0.00 K/uL Basophils # (Auto) 0.01 K/uL RDW Standard Deviation 48.2 fL RDW Coefficient of Variation 15.0 % Immature Granulocyte % (Auto) 0.4 % Immature Granulocyte # (Auto) 0.04 K/uL Sodium Level 134 mmol/L Potassium Level 5.1 mmol/L Chloride Level 93 mmol/L Carbon Dioxide Level 24 mmol/L Anion Gap 17.0 mmol/L Blood Urea Nitrogen 74 mg/dl Creatinine 2.10 mg/dl Est Creatinine Clear Calc Drug Dose 13.6 ml/min Estimated GFR () 23.8 Estimated GFR (Non- 20.5 BUN/Creatinine Ratio 35.1 Random Glucose 65 mg/dl Lactic Acid Level 4.3 mmol/L Calcium Level 8.1 mg/dl Total Bilirubin 1.2 mg/dl Direct Bilirubin 0.5 mg/dl Aspartate Amino Transf (AST/SGOT) 88 U/L Alanine Aminotransferase (ALT/SGPT) 34 U/L Alkaline Phosphatase 350 U/L Total Protein 6.5 gm/dl Albumin 2.5 gm/dl Lipase 41 U/L Bedside Glucose 51 mg/dl 56 mg/dl Urine Color DK YELLOW Urine Appearance CLOUDY Urine pH 5.0 Urine Specific [place] 1.023 Urine Protein 1+ Urine Glucose (UA) NEG Urine Ketones TRACE Urine Occult Blood NEG Urine Nitrite NEG Urine Bilirubin NEG Urine Urobilinogen NEG Urine Leukocyte Esterase SMALL Urine WBC (Auto) 1-5 /hpf Urine RBC (Auto) 0-4 /hpf Urine Hyaline Casts (Auto) 5-10 /lpf Urine Epithelial Cells (Auto) 20-30 /lpf Urine Bacteria (Auto) NEG Test 09/22/16 15:28 09/22/16 16:12 09/22/16 16:18 09/22/16 17:22 Bedside Glucose 52 mg/dl 51 mg/dl 66 mg/dl Bedside Blood Gas pH (LAB) 7.32 Bedside Blood Gas pCO2 (LAB) 46 mmHg Bedside Blood Gas pO2 (LAB) 168 mmHg Bedside Blood Gas HCO3 (LAB) 24 meq/L Bedside Blood Gas Total CO2 25 mEq/l Bedside Blood Gas Base Excess (LAB) -2.0 meq/L Bedside Blood Gas O2 Saturation 99.0 % Test 09/22/16 18:25 09/22/16 19:32 09/22/16 22:27 09/22/16 22:30 Bedside Glucose 94 mg/dl 32 mg/dl Prothrombin Time 13.7 SECONDS Prothromb Time International Ratio 1.3 Activated Partial Thromboplast Time 29.6 SECONDS Partial Thromboplastin Ratio 1.1 Sodium Level 141 mmol/L Potassium Level 3.9 mmol/L Chloride Level 106 mmol/L Carbon Dioxide Level 21 mmol/L Anion Gap 14.0 mmol/L Blood Urea Nitrogen 69 mg/dl Creatinine 1.80 mg/dl Est Creatinine Clear Calc Drug Dose 15.8 ml/min Estimated GFR () 28.6 Estimated GFR (Non- 24.7 BUN/Creatinine Ratio 38.4 Random Glucose 32 mg/dl Lactic Acid Level 3.7 mmol/L Calcium Level 6.2 mg/dl Prealbumin 7.8 mg/dl Chemistry Specimen Hemolysis Test 09/22/16 22:46 09/22/16 23:18 09/22/16 23:50 09/23/16 00:24 Bedside Glucose 193 mg/dl 154 mg/dl Bedside Glucose (other) 147 mg/dl Diagnostic Results SINGLE VIEW CHEST CLINICAL HISTORY: Line and tube placement. FINDINGS: An AP, portable, upright chest radiograph is compared to study performed earlier the same day 09/22/2016. The examination is degraded by portable technique and patient rotation. An endotracheal tube has been placed. The tip projects 7 mm above the aaron. An enteric tube projects below the diaphragm over the stomach. A right internal jugular central venous catheter is in place. The tip projects at the level of the diaphragm over the right atrium. The heart is normal for projection. There is atherosclerotic calcification of the thoracic aorta. There are low lung volumes. Bibasilar atelectasis is observed. Chronic interstitial thickening is noted. There is no airspace consolidation typical for pneumonia or large pleural effusion. No pneumothorax is seen. The skeletal structures are osteopenic. The bony thorax is grossly intact. 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 Surgical clips are present in the axilla bilaterally. Small bowel obstruction versus ileus is again noted in the upper abdomen. IMPRESSION: 1. An endotracheal tube has been placed. The tip projects 7 mm above the aaron. This should be pulled back. 2. An enteric tube projects below the diaphragm. 3. A right internal jugular central venous catheter has been placed. The tip of the catheter projects at the level of the diaphragm over the right atrium. No pneumothorax is seen post procedure. 4. Low lung volumes. No airspace consolidation is seen typical for pneumonia. Electronically signed by: Barak Clinton M.D. 09/22/2016 10:18 PM Dictated Date/Time: 09/22/2016 10:[address] OF THE ABDOMEN AND PELVIS WITHOUT CONTRAST CLINICAL HISTORY: Abdominal pain. COMPARISON STUDY: No previous studies for comparison. TECHNIQUE: Axial images of the abdomen and pelvis were obtained without IV contrast. Images were reviewed in the axial, sagittal, and coronal planes. FINDINGS: Visualized portions of the lower chest demonstrate suspected post surgical finding within the right breast. There is mild cardiomegaly. This extensive coronary artery calcification. A small right pleural effusion is noted with associated atelectasis. No pneumatosis, free air or portal venous gas is present. 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 There is no evidence for rupture. A moderate sized hiatal hernia is noted. There is a 12.9 x 7.7 cm hypodense mass-like focus within the anterior segment of the right hepatic lobe and the medial segment of the left hepatic lobe. This is indeterminate. Geographic fatty infiltration is noted within the liver as well. A 2.2 cm lesion arising from the upper pole of the left kidney is suboptimally assessed on this unenhanced exam but this measures water attenuation. This may reflect a cyst. There is no hydronephrosis. Unenhanced images of the spleen, adrenal glands and pancreas are unremarkable. There are small bowel is fluid-filled and moderately dilated. Note is made of gas within the gallbladder as well as pneumobilia. There is a large impacted gallstone within the terminal ileum just proximal to the ileocecal valve that measures 3.1 x 2 cm. IMPRESSION: 1. Findings consistent with a high-grade small bowel obstruction due to an impacted gallstone within the terminal ileum, just proximal to the ileocecal valve. 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 The findings represent gallstone ileus. Surgical consultation is recommended. 2. 12.9 x 7.7 cm mass-like hypodense focus within the liver. This may reflect fatty infiltration. A mass could appear similar. A follow-up nonemergent MRI of the liver is recommended. 3. 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 No rupture. 4. Small right pleural effusion. 5. Moderate sized hiatal hernia. 6. Gas within the bladder, a nonspecific finding which may be related to recent instrumentation. Electronically signed by: Stefano Drew M.D. 09/22/2016 2:12 PM Dictated Date/Time: 09/22/2016 2:03 PM ABDOMEN 2VIEW W/PA CHEST RTN CLINICAL HISTORY: Abdominal pain and nausea COMPARISON STUDY: No previous studies for comparison. FINDINGS: There are low lung volumes. There are surgical clips in both axillary regions. There is mild elevation right hemidiaphragm. No free air is visualized. Supine and decubitus views the abdomen reveal multiple dilated small bowel loops with multiple air-fluid levels. There is a paucity of colonic gas. The findings are indicative of a small bowel obstruction. There are eggshell calcifications within the left upper quadrant suggestive of splenic artery aneurysms. The largest measures 23 mm. IMPRESSION: 1. Small bowel obstructive pattern 2. No evidence of free air 3. Suspected splenic artery aneurysm Electronically signed by: Ahmet Kaur M.D. 09/22/2016 1:33 PM Dictated Date/Time: 09/22/2016 1:31 PM Assessment & Plan Reason Critically Ill: Patient is an 89-year-old female who is transferred to the ICU for post-operative management of a small bowel obstruction caused by a large gallstone ileus. Pt arrived mildly hypotensive as well as hypoglycemic. She was still sedated on propofol which was thought to be a possible cause for the hypotension. Propofol was discontinued and replaced with Precedex and patient did arouse within 15-20 minutes. Her glucose was found to be in the low 30's and pt received an amp of D50 with a rebound glucose in the 190's approx 15 minutes later. PLAN: CV: * Norepinephrine and titrate to a map greater than 60 per arterial line * Discontinue propofol, hypertension likely multifactorial with propofol as a possible causative agent * Monitor on telemetry * Random cortisol pending; likely unreliable as pt did receive Decadron 4mg at 1512 * Home meds currently held * Pravastatin * Lopressor Resp: * Currently intubated 7.0 ET tube 21 cm at the lip settings: Volume control 10/ 500/5/50% * Blood gas 09/22/ @ 1612: 7.32/46/168/24 * Spontaneous awakening and breathing trial in the morning * Extubate in AM if above is tolerated and off pressors * CXR in AM * VBG with morning labs * Anion gap closing 17; now 14 GI/Nutrition: * POD #0 for Exploratory lap, Enterotomy, and Removal of Gallstone * Gall Stone Ileus and Small Bowel Obstruction * Hx of Gallbladder CA * Lactic Acid elevated secondary to abd process (Trend q6hrs) * Prophylactic Antibiotic Coverage as noted in I.D. * OG tube to suction, output slowing * If not extubated on POD #1, will need to start stress prophylaxis * Suspicion of poor nutritional status * Check pre-albumin level * Begin 100 mg IV thiamine daily * Nothing by mouth currently while intubated and on pressors * Consider Bowel Regimen * Home medications indicate chronic constipation ID: * In light of hypotension, increase broad coverage * Cefazolin 1 g IV every 8 hours * Vancomycin 1100 mg IV daily * Zosyn 4.5 g IV for GI source * Caspofungin 50 mg IV daily after first 70 mg bolus * Blood cultures pending * Lactic acid trending every 6 hours * In the setting of abdominal surgery, procalcitonin will be elevated and will not shed light on patient condition Fluids/Renal: * Pt considerably dehydrated upon ED labs. Received 4L in O.R. Cath'd prior to ICU arrival for 225cc, 35-40cc over the last 6hrs * Strict I&O's; Lui Catheter to [place] * NSS 500cc bolus now. * Continue Fluid Resuscitation; may need to remove dextrose * Bun/Cr improvin.1 now 1.8; Continue to trend and monitor daily PRP Neuro: * Currently sedated on Precedex; titrate to a RASS -1 * Monitor for neuro changes Heme: * H&H stable * Minimal blood loss in O.R. not overt signs of bleeding presently * Monitor Daily Labs * DVT Prophylaxis: SCDs in place now. Lovenox to begin at 0900 on POD #1 Endocrine: * Fluctuating blood sugars noted. Continue to monitor closely * Multiple medications including fluid resuscitation include dextrose * Will consult glycemic control pharmacist * DM2 diagnosis with Insulin use at home * Accu-Checks per protocol, started insulin infusion for 2 blood sugars greater than 180 * Continue Levothyroxine Sodium 88 MCG PO DAILY (home medication) * Outpt Labs 09/11: TSH 0.567 T4 Free 1.47 Access: RIJ central catheter and Right Arterial Line in place, Left PIV AC as well. CCT: 65 Minutes; This time is exclusive of all separately billable procedures. Thank you for involving us in the care of this patient. Please refer to Dr. Juan Izquierdo's addendum for further recommendations. I have personally evaluated and examined this patient. I agree with assessment and plan of Marilyn Rosado PA-C. Patient had aggressive resuscitation in the operating room, I'm concerned about fluids shifts and given minimal urine output worsening acidosis. Expanded antibiotic coverage to include caspofungin, Zosyn, and vancomycin. I'm still concerned for intra-abdominal sepsis, we are not able to obtain a contrasted CT scan at this time so we will empirically treat. Patient tolerating pressure support ventilation if urine output improves may consider spontaneous breathing trial and hopeful extubation tomorrow.
[2016-09-23] MEDS ORDERED: VANCOMYCIN INJ 1,100 MG in SODIUM CHLORIDE 0.9% 250ML 250 ML IV ONE (02:00)
[2016-09-23] MEDS ORDERED: PIPERACILL/TAZOBAC CONSULT ACTIVE PRN (02:00)
[2016-09-23] MEDS ORDERED: VANCOMYCIN CONSULT ACTIVE PRN (02:00)
[2016-09-23] MEDS ORDERED: PNEUMOCOCCAL POLYSACCHARIDES 25 MCG/0.5 ML VIAL/SYR IM. ONE (02:30)
[2016-09-23] MEDS ORDERED: INFLUENZA VIRUS QUAD VACCINE 0.5 ML SYR IM. ONE (02:30)
[2016-09-23] MEDS ORDERED: PNEUMOCOCCAL ADMINISTRATION CHARGE ONE (02:30)
[2016-09-23] MEDS ORDERED: INFLUENZA ADMINISTRATION CHARGE ONE (02:30)
[2016-09-23] MEDS: SODIUM CHLORIDE 0.9% 500ML 500 ML IV SCH ×2 (03:00→07:46)
[2016-09-23] MEDS ORDERED: PHARMACY GLYCEMIC MGMT CONSULT STA (03:59)
[2016-09-23] MEDS ORDERED: INSULIN ASPART 100 UNITS/ML 3 ML PEN SC ONE (04:15)
[2016-09-23] MEDS: SODIUM CHLORIDE 0.9% 1000ML 1,000 ML IV SCH ×2 (04:15→06:32)
[2016-09-23] MEDS: DexMEDEtomidine HCL IV 200 MCG in SODIUM CHLORIDE 0.9% 50ML 48 ML IV PRN (04:32)
[2016-09-23 04:53] LABS: VEN BLD GAS O2 SATURATION < 60.0 %; VEN BLOOD GAS BASE EXCESS -5.3 mmol/L; VENOUS BLOOD GAS PCO2 43 mmHg (38.0-50.0); VENOUS BLOOD GAS PO2 37 mmHg
[2016-09-23 05:06] LABS: BUN/CREATININE RATIO 32.8 (10-20); CALCIUM 5.4 mg/dl (8.5-10.1); MAGNESIUM 1.8 mg/dl (1.8-2.4)
[2016-09-23 05:07] LABS: ALB/GLOB RATIO 0.6 (0.9-2); PHOSPHORUS 4.5 mg/dl (2.5-4.9)
[2016-09-23] MEDS ORDERED: CALCIUM GLUCONATE 10% 2,000 MG in SODIUM CHLORIDE 0.9% 50ML 50 ML IV STA ×2 (06:00→20:13)
[2016-09-23] MEDS: PIPERACILL/TAZOBAC IV 3.375 GM in DEXTROSE 5% 100ML IV SCH ×2 (06:11→17:26)
[2016-09-23 06:29] LABS: HEMATOCRIT 42.3 % (37-47); MEAN CELL VOLUME 89.1 fL (80-100); MEAN CORPUSCULAR HEMOGLOBIN 29.5 pg (25-34); MEAN CORPUSCULAR HGB CONC 33.1 g/dl (32-36); MEAN PLATELET VOLUME 9.6 fL (7.4-10.4); PLATELET COUNT 360 K/uL (130-400); RED BLOOD COUNT 4.75 M/uL (4.2-5.4); WHITE BLOOD COUNT 10.95 K/uL (4.8-10.8)
[2016-09-23] MEDS ORDERED: NURSING VERBAL MED ORDER ONE ×4 (06:30→19:45)
[2016-09-23] MEDS: INSULIN ASPART 100 UNITS/ML 3 ML PEN SC SCH ×3 (06:32→17:35)
[2016-09-23] MEDS: CEFAZOLIN IV 1,000 MG in DEXTROSE 5% 50ML 50 ML IV SCH (06:32)
--- NOTE | 2016-09-23 06:46 | DIAGNOSTIC IMAGING REPORT ---
RENAL ULTRASOUND CLINICAL HISTORY: Acute renal failure. COMPARISON STUDY: CT of the abdomen and pelvis September 22, 2016. TECHNIQUE: Sonography of the kidneys and the urinary bladder was performed. FINDINGS: This exam was mildly compromised by suboptimal penetration. However, there was no hydronephrosis. Moderate to marked renal cortical thinning was noted. The right kidney measured 7.5 cm in maximal dimension and the left measured 9.4 cm. The bladder was not well visualized, containing a Lui catheter. IMPRESSION: 1. No hydronephrosis. 2. Moderate to marked renal atrophy. Electronically signed by: Stefano Drew M.D. 09/23/2016 6:45 AM Dictated Date/Time: 09/23/2016 6:43 AM
[2016-09-23 06:57] LABS: BASO % 0.1 %; BASO ABS # 0.01 K/uL (0-0.2); COMPLETE YES; EOS % 0.1 %; IG% 0.7 %; LYMPH % 8.9 %; LYMPH ABS # 0.97 K/uL (1.2-3.4); MONO % 9.3 %; NEUT % 80.9 %; TOXIC GRANULATION 1+
--- NOTE | 2016-09-23 07:35 | DIAGNOSTIC IMAGING REPORT ---
CHEST ONE VIEW PORTABLE CLINICAL HISTORY: Respiratory failure COMPARISON STUDY: 09/22/2016 FINDINGS: The study is somewhat limited from a technical standpoint. The patient is rotated to the left. The endotracheal tube is positioned with its tip at the origin of the right mainstem bronchus. There are bilateral surgical clips within the axillary region. There is a nasogastric tube within the stomach. There is no overt failure. There are left basilar opacities, likely atelectatic. There is a right internal jugular central venous catheter present, tip of which is located within the right atrium. IMPRESSION: 1. The patient's endotracheal tube is positioned with its tip at the origin of the right mainstem bronchus. Endotracheal tube readjustment is recommended 2. Left basilar opacities, likely atelectatic Electronically signed by: Ahmet Kaur M.D. 09/23/2016 7:34 AM Dictated Date/Time: 09/23/2016 7:31 AM
[2016-09-23] MEDS ORDERED: CALCIUM GLUCONATE 10% 2,000 MG in SODIUM CHLORIDE 0.9% 50ML 50 ML IV ONE (07:45)
--- NOTE | 2016-09-23 08:35 | Clinical Documentation Query ---
MELANIE Valenzuela : CLINICAL DOCUMENTATION QUERIES QUERY 1 OF 2 Patient is an 89 year old female admitted to ICU postoperatively after exploratory laparotomy, enterotomy, and removal of gallstone responsible for distal ileus obstruction. She arrived to ICU hypotensive. Propofol was discontinued and Precedex was initiated. Norepinephrine infusion being titrated to MAP and monitored via arterial line. Anion gap was 17 on admission now 14. Antibiotic coverage was increased in light of hypotension per cruise director consultation to include Cefazolin, Vancomycin, Zosyn, and Caspofungin. Lactic acid 4.3 on admission, only down to 3.9 this a.m. despite aggressive IVF resuscitation and above therapies. Acute renal failure POA without improvement and diminished urinary output this a.m. Nephrology consult pending. In your clinical opinion is this patient being managed for: ( ) Postprocedural septic shock ( ) Other explanation of clinical findings (Please Explain) ( ) Unable to determine (Please Define) ( ) Need to Discuss ( ) Not Agree please forward query to attending hospitalist Dr. Rohan Leroy. Thank you. The medical record reflects the following clinical findings, treatment, and risk factors. 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 QUERY 2 OF 2 Admission BUN, creatinine, and estimated GFR were 74 mg/dl, 2.10 mg/dl, and 20 ml/min. UA demonstrated dark urine with casts. Urinary output on 09/22 from - was 30 ml and only 8 ml's from -. Nephrology to see in consultation. In your clinical opinion is this patient being managed for: ( ) Acute kidney failure with tubular necrosis ( ) Other explanation of clinical findings (Please Explain) ( ) Unable to determine (Please Define) ( ) Need to Discuss ( ) Not Agree The medical record reflects the following clinical findings, treatment, and risk factors. Clinical Indicators: As above Treatment: IVF, nephrology consultation Risk Factors: Surgery, hypotension Please clarify and document your clinical opinion in the progress notes and discharge summary. Terms such as "probable", "suspected", "likely", "questionable", "possible", or "still to be ruled out" are acceptable. IF IN AGREEMENT, YOU MUST DOCUMENT ABOVE DIAGNOSTIC STATEMENT IN DAILY PROGRESS NOTES AND DISCHARGE SUMMARY. This document is not part of the patient's record. Thank You, Juan Nath RN [phone]
[2016-09-23] MEDS: ALBUMIN HUMAN 25% 12.5 GM/50 ML VIAL IV SCH ×2 (08:44→20:22)
[2016-09-23] MEDS: THIAMINE HCL INJ 100 MG in SYRINGE 9 ML IV SCH (08:48)
[2016-09-23] MEDS ORDERED: ENOXAPARIN 30 MG/0.3 ML SYR SQ SCH (09:00)
[2016-09-23 09:51] LABS: INR 1.4 (0.9-1.1); PARTIAL THROMBOPLASTIN RATIO 1.3; PROTHROMBIN TIME (PATIENT) 14.7 SECONDS (9.0-12.0)
[2016-09-23] MEDS ORDERED: [UNRECOGNIZED DRUG - OTHER] IV SCH (10:30)
[2016-09-23] MEDS ORDERED: DEXTROSE 50% 50 ML SYR IV ONE (10:30)
[2016-09-23] MEDS ORDERED: ALBUMIN HUMAN 25% 12.5 GM/50 ML VIAL IV ONE (10:30)
[2016-09-23] MEDS ORDERED: ACETAMINOPHEN IV 1,000 MG in EMPTY BAG 0 ML IV PRN (10:32)
[2016-09-23] MEDS ORDERED: GLUCAGON FOR INJ 1 MG VIAL SQ PRN (10:45)
[2016-09-23] MEDS ORDERED: GLUCOSE 40% GEL 15 GM TUBE PO PRN (10:45)
[2016-09-23] MEDS ORDERED: GLUCOSE 10 TABS/TUBE PO PRN (10:45)
--- NOTE | 2016-09-23 10:52 | NEPHROLOGY CONSULTATION ---
DATE OF CONSULTATION: 09/23/2016 ATTENDING OF RECORD: Baljit Youngblood MD REASON FOR CONSULTATION: TERRANCE. 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 The patient also had a renal ultrasound which showed no hydronephrosis, but did show moderate to marked renal atrophy with the right kidney at 7.5 cm and the left kidney at 9.4 cm. The patient underwent surgery last night by Dr. Brown; who underwent an exploratory laparotomy, enterotomy and removal of gallstones. There was a large 3 cm rounded gallstone. No ischemia was noted. The patient is currently intubated on 40% FIO2, awake and answering questions. The patient currently is on pressors. Urine output is minimal with 315 mL out yesterday and 200 mL out this morning. Currently positive about 5 liters. REVIEW OF SYSTEMS: Unable to obtain secondary to patient being intubated, but the patient did shake her head no to having any pain. PAST MEDICAL HISTORY: Diabetes, hypertension, new onset AFib in July of this year after resection of a neuroendocrine tumor, hypertension, hyperlipidemia and neuroendocrine carcinoma. PAST SURGICAL HISTORY: Hysterectomy, cholecystectomy, partial mastectomy, liver biopsy and now with recent gallstone removal. SOCIAL HISTORY: No smoking, no alcohol, no drugs. She is . CURRENT MEDICATIONS: Caspofungin 50 mg q 24, Lovenox 30 mg subQ daily, thiamine 100 mg IV daily, sliding scale insulin, Zosyn 3.375 IV q. 12, normal saline at 125 mL an hour, vancomycin, cefazolin 1 gram IV q. 8 and Levophed. FAMILY HISTORY: No renal disease in family. PHYSICAL EXAMINATION: VITAL SIGNS: Temperature 36.4, pulse 72, respiratory rate 20, blood pressure is 91/54 and satting 97% on 40% FIO2. GENERAL: Awake, intubated, answers questions and appears comfortable. EYES: No scleral icterus. HEENT: Moist mucous membranes. NECK: Supple. PULMONARY: Clear to auscultation anteriorly. CARDIAC: Regular rate and rhythm. ABDOMEN: Hypoactive bowel sounds with a surgical dressing in place. EXTREMITIES: No significant clubbing, cyanosis or edema. NEUROLOGIC: Awake, follows commands and answers questions. DERMATOLOGIC: No rash or ulcers noted. LABORATORY DATA: White count is 10, H\T\H 14 and 42, platelet count is 360. Venous blood gas this morning pH of 7.3, pCO2 of 43, pO2 of 37 and bicarbonate of 21. Sodium is 141, potassium is 4, chloride is 107, bicarb is 22, BUN 66, creatinine is 2, glucose 180, lactic acid is 3.9 and ionized calcium 0.79. Phosphorus 4.5, albumin is 1.4. INR is 1.3. UA shows a pH of 5, specific gravity 1.023, 1+ protein, trace ketones, small leukocyte esterase and 0-4 RBCs. Blood cultures are pending. Chest x-ray this morning is pending. IMPRESSION: 1. Acute kidney injury, oliguric with a creatinine of 2, on pressors in the setting of shock. The patient with gallstone ileus requiring emergent surgery. Currently intubated, on pressors with decreased urine output and low albumin levels. Currently is getting IV fluids, pressors, appropriate antibiotics and replacement of electrolytes. Baseline creatinine is 0.8. No emergent need for dialysis at this time despite the patient being 5 kilos positive. No significant third-spacing of fluid at this time. We would give albumin as well, trying to help mobilize intravascular volume in addition to the fluids and antibiotics. 2. Hypocalcemia. The patient was repleted with 2 grams of calcium this morning. We would go ahead and give another 2 grams of calcium as well given the significant hypocalcemia likely in the setting of lactic acidosis and sepsis. Replacement of the calcium will help with the blood pressures as well. 3. Overall, poor prognosis given the patient's comorbidities; however, currently stable in the intensive care unit. We will follow along and concur with aggressive volume resuscitation including albumin, fluids and continue antibiotics. Cultures are pending. We will continue to replete the calcium as well. I appreciate the consultation. ROHIT
[2016-09-23] MEDS: PANTOprazole INJ 40 MG in SYRINGE 0 ML IV SCH (11:03)
--- NOTE | 2016-09-23 11:05 | ECHOCARDIOGRAM REPORT ---
*NOTICE TO RECEIVING DEMOCRAT AGENCY This information is strictly Confidential and protected under [place] law. [place] law prohibits you from making any further disclosure of this information unless further disclosure is expressly permitted by the written consent of the person to whom it pertains or is authorized by law. A general authorization for the release of medical or other information is not sufficient for this purpose. Hospital accepts no responsibility if the information is made available to any other person, INCLUDING THE PATIENT. Interpretation Summary * Name: MARY ANNE SIERRA Study Date: 09/23/2016 06:37 AM BP: 91/54 mmHg * Patient Location: .MSICU\S\E110\S\1 HR: 72 * : 1925 (M/d/yyyy) Gender: Female Height: 55 in * Age: 89 yrs Ethnicity: CA Weight: 128 lb * Ordering Physician: Padmini Rosado * Referring Physician: Dave Diaz * Performed By: Tasha Vuong RDCS * * Reason For Study: CHF * BSA: 1.4 m2 * History: CHF * The study was technically difficult. * There is no comparison study available. * -- Conclusions -- * Ejection Fraction = 50-55%. * The aortic valve is severely calcified with fusion of the right and non-coronary cusps. * Doppler interrogation and 2D imaging are discordant. Severe aortic stenosis is suspected. * Grade I diastolic dysfunction, (abnormal relaxation pattern). Procedure Details * A complete two-dimensional transthoracic echocardiogram was performed (2D, M-mode, Doppler and color flow Doppler). Left Ventricle * The left ventricle is normal in size. * There is no thrombus. * There is mild concentric left ventricular hypertrophy. * Ejection Fraction = 50-55%. * Left ventricular systolic function is normal. * The left ventricular wall motion is normal. Right Ventricle * The right ventricle is borderline dilated. * The right ventricular systolic function is qualitatively normal. Atria * The left atrial size is normal. * Right atrial size is normal. * There is no evidence of atrial septal defect, but resolution does not allow assessment for a patent foramen ovale. Mitral Valve * The mitral valve is not well visualized. * There is moderate mitral annular calcification. * There is no mitral valve stenosis. * Significant mitral regurgitation is absent. Tricuspid Valve * The tricuspid valve is not well visualized. * There is no tricuspid stenosis. * Significant tricuspid regurgitation is absent. Aortic Valve * The aortic valve is severely calcified with fusion of the right and non-coronary cusps. * Doppler interrogation and 2D imaging are discordant. Severe aortic stenosis is suspected. * There is no significant aortic regurgitation. Pulmonic Valve * The pulmonary valve is not well seen, but the Doppler examination is normal without significant regurgitation or stenosis. Great Vessels * The aortic root is normal size. Pericardium/Pleural * There is no pericardial effusion. Great Vessels * Normal inferior vena cava diameter and respiratory variation suggests normal central venous pressure. Left Ventricular Diastolic Function * Grade I diastolic dysfunction, (abnormal relaxation pattern). MMode 2D Measurements and Calculations IVSd 1.2 cm IVSs 1.4 cm LVIDd 3.0 cm LVIDs 2.4 cm LVPWd 1.1 cm LVPWs 1.0 cm IVS/LVPW 1.1 FS 21.7 % EDV(Teich) 35.6 ml ESV(Teich) 19.4 ml EF(Teich) 45.5 % EDV(cubed) 27.6 ml ESV(cubed) 13.2 ml EF(cubed) 52.1 % % IVS thick 12.5 % % LVPW thick -5.65 % LV mass(C)d 105.5 grams LV mass(C)dI 72.7 grams/m\S\2 LV mass(C)s 81.2 grams LV mass(C)sI 56.0 grams/m\S\2 SV(Teich) 16.2 ml SI(Teich) 11.2 ml/m\S\2 SV(cubed) 14.4 ml SI(cubed) 9.9 ml/m\S\2 Ao root diam 3.2 cm Ao root area 7.9 cm\S\2 LVAd ap4 18.7 cm\S\2 LVLd ap4 7.3 cm EDV(MOD-sp4) 39.2 ml EDV(sp4-el) 40.6 ml LVAs ap4 10.0 cm\S\2 LVLs ap4 5.9 cm ESV(MOD-sp4) 14.1 ml ESV(sp4-el) 14.5 ml EF(MOD-sp4) 64.1 % EF(sp4-el) 64.3 % LVAd ap2 17.2 cm\S\2 LVLd ap2 6.4 cm EDV(MOD-sp2) 37.1 ml EDV(sp2-el) 39.1 ml LVAs ap2 9.5 cm\S\2 LVLs ap2 5.4 cm ESV(MOD-sp2) 14.4 ml ESV(sp2-el) 14.3 ml EF(MOD-sp2) 61.1 % EF(sp2-el) 63.3 % LVLd %diff -14.19 % EDV(MOD-bp) 41.0 ml LVLs %diff -8.83 % ESV(MOD-bp) 15.2 ml EF(MOD-bp) 63.1 % SV(MOD-sp4) 25.1 ml SI(MOD-sp4) 17.3 ml/m\S\2 SV(MOD-sp2) 22.7 ml SI(MOD-sp2) 15.7 ml/m\S\2 SV(MOD-bp) 25.9 ml SI(MOD-bp) 17.9 ml/m\S\2 SV(sp4-el) 26.1 ml SI(sp4-el) 18.0 ml/m\S\2 SV(sp2-el) 24.7 ml SI(sp2-el) 17.0 ml/m\S\2 Doppler Measurements and Calculations MV E max dawit 53.8 cm/sec MV A max dawit 99.4 cm/sec MV E/A 0.54 MV dec time 0.42 sec Ao V2 max 117.3 cm/sec Ao max PG 5.5 mmHg Ao max PG (full) 3.9 mmHg LV V1 max PG 1.6 mmHg LV V1 max 62.6 cm/sec
[2016-09-23] MEDS ORDERED: PERFLUTREN LIPID MICROSPHERE (DEFINITY) IV ONE (11:11)
--- NOTE | 2016-09-23 11:14 | Progress Note ---
Internal Med Progress Note Date of Service: Sep 23, 2016. Provider Documentation: SUBJECTIVE: Patient is seen and examined at bedside. Currently intubated, awake. Seemed to have some abdominal pain. Denies any chest pain, SOB. Currently off sedation and Levophed down titration. Family at bedside. No BM yet. ET tube tip at the origin of the right mainstem bronchus on CXR today. Requested critical care team to help with ET tube adjustment. OBJECTIVE: Vital Signs-as noted below Physical Exam: General Appearance:Moderately built and nourished, no apparent distress, currently intubated, awake off sedation Head: normocephalic, Atraumatic Eyes: normal inspection, EOMI, PERRL Neck: supple, Trachea midline Respiratory/Chest: B/L air entry. Coarse breath sounds Cardiovascular: S1, S2, No murmur Abdomen/GI:Soft, mild tender, Bowel sounds diminished, Surgical site in bandage Extremities/Musculoskelatal:normal inspection, no edema Neurologic/Psych:Alert, Awake off sedation. Complete neuro exam not performed as currently intubated Skin: normal color, warm Lab data as noted below. ASSESSMENT & PLAN: GALLSTONE ILEUS: SEPTIC SHOCK: S/P Explorative laparotomy, enterotomy and stone removal POD #1 Patient presented with abd pain, nausea, vomiting, decreased oral intake Leukocytosis is improving Continue broad spectrum IV antibiotics Follow up cultures Surgery on board Monitor Lactic acid Continue respiratory support per critical care TERRANCE: Likely ATN secondary to septic shock Baseline Cr: 0.8 Continue IV fluids Avoid nephrotoxic agents Appreciate Nephrology input Continue Albumin per nephrology Renal USD: No hydronephrosis Hypocalcemia: In setting of lactic acidosis and sepsis. Continue replacement of calcium per Nephrology Monitor calcium levels Hypoglycemia: H/O DM II Last A1C 7.2 Repeat A1c: pending Hold metformin, glimepiride and Prandin pharmacy consulted for glycemic mgmt monitor BSG AC HS Continue D5W HEPATIC NEUROENDOCRINE TUMOR s/p resection Jul 2015 @ [facility] continue Sandostatin Follows with [facility] oncology HTN Hold HTN meds currently on pressors continue to monitor Possible Severe Aortic Stenosis ECHO as below DYSLIPIDEMIA Stable DVT PX: Heparin SQ GI Px: Continue Protonix CODE STATUS FULL CODE DISPOSITION: Continue monitoring in ICU PROCEDURES: Renal USD: 1. No hydronephrosis. 2. Moderate to marked renal atrophy. ECHO: * Ejection Fraction = 50-55%. 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 * Doppler interrogation and 2D imaging are discordant. Severe aortic stenosis is suspected. * Grade I diastolic dysfunction, (abnormal relaxation pattern). Vital Signs: Date Time Temp Pulse Resp B/P Pulse Ox O2 Delivery O2 Flow Rate FiO2 09/23/16 17:00 40 09/23/16 17:00 92 16 106/55 97 Mechanical Ventilator 35 09/23/16 16:00 36.6 94 29 112/55 97 Mechanical Ventilator 35 09/23/16 16:00 97 CPAP 35 Mechanical Ventilator 09/23/16 16:00 35 09/23/16 15:42 94 125/71 09/23/16 15:00 94 29 125/71 98 Mechanical Ventilator 09/23/16 14:17 40 09/23/16 14:00 97 26 106/77 98 09/23/16 13:00 98 30 135/76 95 130/68 09/23/16 12:59 114 145/66 09/23/16 12:00 36.6 103 20 145/66 96 CPAP Mechanical Ventilator 09/23/16 12:00 35 09/23/16 12:00 97 CPAP 35 Mechanical Ventilator 09/23/16 11:40 103 20 154/64 99 CPAP Mechanical Ventilator 09/23/16 11:30 40 09/23/16 11:00 95 30 130/58 93 09/23/16 10:45 94 30 125/55 93 09/23/16 10:30 93 28 132/57 94 09/23/16 10:15 91 28 129/57 97 09/23/16 10:00 89 28 125/58 98 09/23/16 10:00 36.8 89 28 108/79 98 09/23/16 09:45 90 30 115/55 98 09/23/16 09:33 89 29 130/59 98 09/23/16 09:30 87 29 137/65 98 09/23/16 09:15 80 28 104/54 98 09/23/16 09:00 86 18 108/79 09/23/16 09:00 86 18 108/79 09/23/16 08:45 79 5 106/56 98 09/23/16 08:00 40 09/23/16 08:00 36.8 76 20 104/66 98 09/23/16 08:00 36.8 76 20 127/70 98 Mechanical Ventilator 09/23/16 08:00 98 CPAP 40 Mechanical Ventilator 09/23/16 07:45 74 24 113/59 98 09/23/16 07:30 73 27 110/58 97 09/23/16 07:30 40 09/23/16 07:15 73 22 111/62 98 09/23/16 07:00 70 22 112/71 09/23/16 06:00 72 20 91/54 97 Mechanical Ventilator 40 09/23/16 05:40 40 09/23/16 05:00 70 13 104/66 97 92/57 09/23/16 04:30 71 13 97/60 97 09/23/16 04:00 Mechanical Ventilator 40 09/23/16 04:00 40 09/23/16 04:00 36.4 66 15 94/69 98 78/58 09/23/16 03:30 65 14 87/50 98 09/23/16 03:01 71 17 113/49 97 84/55 09/23/16 02:45 50 09/23/16 02:00 68 12 103/68 98 Mechanical Ventilator 50 09/23/16 01:14 97 Mechanical Ventilator 50 09/23/16 01:00 79 14 90/73 97 85/51 09/23/16 00:50 81 12 91/55 97 09/23/16 00:35 76 15 100/61 97 95/54 09/23/16 00:20 84 17 95 09/23/16 00:00 36.8 83 16 100/71 94 100/59 09/22/16 23:59 Mechanical Ventilator 50 09/22/16 23:59 50 09/22/16 23:50 84 16 93 09/22/16 23:42 96 16 84/45 94 76/50 09/22/16 23:30 50 09/22/16 23:20 87 14 92/52 95 09/22/16 23:03 85 15 90/65 98 85/46 09/22/16 22:50 82 16 81/45 97 09/22/16 22:41 83 16 81/54 98 09/22/16 22:39 81 16 87/53 98 09/22/16 22:38 90 14 77/52 97 09/22/16 22:20 98 16 71/46 97 09/22/16 22:00 98 16 94/63 98 92/58 09/22/16 21:50 86 16 81/50 99 09/22/16 21:20 104 16 70/51 98 09/22/16 21:00 90 18 85/62 98 80/43 09/22/16 20:59 36.5 92 19 80/64 98 73/50 09/22/16 20:31 50 09/22/16 20:00 50 09/22/16 20:00 Mechanical Ventilator 50 09/22/16 19:35 36.5 104 16 114/75 94 Mechanical Ventilator 50 98/57 09/22/16 19:25 36.5 105 14 107/88 93 Mechanical Ventilator 50 107/88 09/22/16 19:15 36.5 103 13 116/75 94 Mechanical Ventilator 50 103/67 09/22/16 19:05 36.5 110 19 148/87 93 Mechanical Ventilator 50 118/70 09/22/16 18:59 36.5 101 19 148/87 93 Mechanical Ventilator 50 118/70 09/22/16 18:55 109 21 169/105 91 Mechanical Ventilator 10 143/78 09/22/16 18:55 109 21 169/105 91 Mechanical Ventilator 10 143/78 09/22/16 18:45 109 21 169/105 91 Mechanical Ventilator 10 143/78 09/22/16 18:35 105 19 157/102 91 Mechanical Ventilator 10 143/79 09/22/16 18:25 103 14 127/85 91 Ambu-Bag 10 118/67 09/22/16 18:15 90 18 108/87 93 Ambu-Bag 10 106/61 09/22/16 18:13 50 09/22/16 18:07 36.6 89 16 106/63 96 Ambu-Bag 10 91/54 Lab Results: Results Past 24 Hours Test 09/22/16 18:25 09/22/16 19:32 09/22/16 22:27 09/22/16 22:30 Range/Units Bedside Glucose 94 32 70-90 mg/dl Prothrombin Time 13.7 9.0-12.0 SECONDS Prothromb Time International Ratio 1.3 0.9-1.1 Activated Partial Thromboplast Time 29.6 21.0-31.0 SECONDS Partial Thromboplastin Ratio 1.1 Sodium Level 141 136-145 mmol/L Potassium Level 3.9 3.5-5.1 mmol/L Chloride Level 106 98-107 mmol/L Carbon Dioxide Level 21 21-32 mmol/L Anion Gap 14.0 3-11 mmol/L Blood Urea Nitrogen 69 7-18 mg/dl Creatinine 1.80 0.60-1.20 mg/dl Est Creatinine Clear Calc Drug Dose 15.8 ml/min Estimated GFR () 28.6 Estimated GFR (Non- 24.7 BUN/Creatinine Ratio 38.4 10-20 Random Glucose 32 70-99 mg/dl Lactic Acid Level 3.7 0.4-2.0 mmol/L Calcium Level 6.2 8.5-10.1 mg/dl Prealbumin 7.8 20-40 mg/dl Chemistry Specimen Hemolysis Test 09/22/16 22:46 09/22/16 23:18 09/23/16 00:24 09/23/16 01:10 Range/Units Bedside Glucose 193 154 70-90 mg/dl Bedside Glucose (other) 147 70-99 mg/dl Random Cortisol 147.92 mcg/dl Test 09/23/16 01:17 09/23/16 02:18 09/23/16 03:13 09/23/16 03:20 Range/Units Bedside Glucose (other) 180 192 218 70-99 mg/dl Venous Blood pH 7.30 7.36-7.41 Venous Blood Partial Pressure CO2 43 38.0-50.0 mmHg Venous Blood Partial Pressure O2 37 mmHg Venous Blood HCO3 21 mmol/L Venous Blood Oxygen Saturation < 60.0 % Venous Blood Base Excess -5.3 mmol/L Sodium Level 141 136-145 mmol/L Potassium Level 4.0 3.5-5.1 mmol/L Chloride Level 107 98-107 mmol/L Carbon Dioxide Level 22 21-32 mmol/L Anion Gap 12.0 3-11 mmol/L Blood Urea Nitrogen 66 7-18 mg/dl Creatinine 2.00 0.60-1.20 mg/dl Est Creatinine Clear Calc Drug Dose 13.4 ml/min Estimated GFR () 25.2 Estimated GFR (Non- 21.7 BUN/Creatinine Ratio 32.8 10-20 Random Glucose 180 70-99 mg/dl Lactic Acid Level 3.9 0.4-2.0 mmol/L Calcium Level 5.4 8.5-10.1 mg/dl Phosphorus Level 4.5 2.5-4.9 mg/dl Magnesium Level 1.8 1.8-2.4 mg/dl Total Bilirubin 0.7 0.2-1 mg/dl Aspartate Amino Transf (AST/SGOT) 57 15-37 U/L Alanine Aminotransferase (ALT/SGPT) 18 12-78 U/L Alkaline Phosphatase 180 45-117 U/L Total Protein 3.9 6.4-8.2 gm/dl Albumin 1.4 3.4-5.0 gm/dl Globulin 2.5 2.5-4.0 gm/dl Albumin/Globulin Ratio 0.6 0.9-2 Test 09/23/16 04:23 09/23/16 06:14 09/23/16 06:18 09/23/16 06:20 Range/Units Bedside Glucose (other) 151 119 70-99 mg/dl Ionized Calcium 0.79 1.12-1.32 mmol/l White Blood Count 10.95 4.8-10.8 K/uL Red Blood Count 4.75 4.2-5.4 M/uL Hemoglobin 14.0 12.0-16.0 g/dL Hematocrit 42.3 37-47 % Mean Corpuscular Volume 89.1 80-100 fL Mean Corpuscular Hemoglobin 29.5 25-34 pg Mean Corpuscular Hemoglobin Concent 33.1 32-36 g/dl Platelet Count 360 130-400 K/uL Mean Platelet Volume 9.6 7.4-10.4 fL Neutrophils (%) (Auto) 80.9 % Lymphocytes (%) (Auto) 8.9 % Monocytes (%) (Auto) 9.3 % Eosinophils (%) (Auto) 0.1 % Basophils (%) (Auto) 0.1 % Neutrophils # (Auto) 8.86 1.4-6.5 K/uL Lymphocytes # (Auto) 0.97 1.2-3.4 K/uL Monocytes # (Auto) 1.02 0.11-0.59 K/uL Eosinophils # (Auto) 0.01 0-0.5 K/uL Basophils # (Auto) 0.01 0-0.2 K/uL RDW Standard Deviation 49.0 36.4-46.3 fL RDW Coefficient of Variation 15.3 11.5-14.5 % Immature Granulocyte % (Auto) 0.7 % Immature Granulocyte # (Auto) 0.08 0.00-0.02 K/uL Toxic Granulation 1+ Test 09/23/16 09:21 09/23/16 09:51 09/23/16 12:05 09/23/16 14:42 Range/Units Prothrombin Time 14.7 9.0-12.0 SECONDS Prothromb Time International Ratio 1.4 0.9-1.1 Activated Partial Thromboplast Time 35.0 21.0-31.0 SECONDS Partial Thromboplastin Ratio 1.3 Lactic Acid Level 3.6 3.1 0.4-2.0 mmol/L Bedside Glucose (other) 75 70-99 mg/dl Bedside Glucose 83 70-90 mg/dl Test 09/23/16 14:58 09/23/16 15:28 09/23/16 16:23 Range/Units Bedside Glucose 231 126 90 70-90 mg/dl Microbiology Results 09/22/16 Blood Culture, Received Pending 09/22/16 Blood Culture, Received Pending 09/22/16 MRSA DNA Surveillance Screen - Final, Complete Specimen Negative for MRSA by DNA Probe
--- NOTE | 2016-09-23 11:28 | Pharmacy Progress Note ---
Pharmacy Antibiotic Consult Date of Service: Sep 23, 2016. Pharmacy Dosing Scope Pharmacy is consulted to initiate IV VANCOMYCIN and ZOSYN therapy, order appropriate labs and adjust drug dose/frequency. Subjective The patient is a 89 year old female admitted on Sep 22, 2016 at 18:21 for abdominal pain, found to have gallstone ileus. Patient did undergo exp lap w/ enterotomy and removal of gall stone. She did become hypotensive and has TERRANCE and has also required vent support. There is concern for sepsis. , Objective Height (Feet): 4 Height (Inches): 7.00 Weight (Kilograms): 61.000 Lab Results (24hrs): Laboratory Tests Test 09/22/16 12:55 09/22/16 22:27 09/23/16 03:20 09/23/16 06:20 BUN/Creatinine Ratio 35.1 38.4 32.8 Blood Urea Nitrogen 74 mg/dl 69 mg/dl 66 mg/dl Creatinine 2.10 mg/dl 1.80 mg/dl 2.00 mg/dl White Blood Count 11.07 K/uL 10.95 K/uL Red Blood Count 5.38 M/uL 4.75 M/uL Hemoglobin 16.6 g/dL 14.0 g/dL Hematocrit 47.9 % 42.3 % Mean Corpuscular Volume 89.0 fL 89.1 fL Mean Corpuscular Hemoglobin 30.9 pg 29.5 pg Mean Corpuscular Hemoglobin Concent 34.7 g/dl 33.1 g/dl Platelet Count 463 K/uL 360 K/uL Mean Platelet Volume 9.9 fL 9.6 fL Neutrophils (%) (Auto) 76.1 % 80.9 % Lymphocytes (%) (Auto) 11.7 % 8.9 % Monocytes (%) (Auto) 11.7 % 9.3 % Eosinophils (%) (Auto) 0.0 % 0.1 % Basophils (%) (Auto) 0.1 % 0.1 % Neutrophils # (Auto) 8.43 K/uL 8.86 K/uL Lymphocytes # (Auto) 1.30 K/uL 0.97 K/uL Monocytes # (Auto) 1.29 K/uL 1.02 K/uL Eosinophils # (Auto) 0.00 K/uL 0.01 K/uL Basophils # (Auto) 0.01 K/uL 0.01 K/uL Micro Results: BLCX's x 2 collected negative MRSA nares screening Recent Pertinent Medications Caspofungin 70mg IV x 1 followed by 50mg IV daily has been ordered Zosyn 4.5gm IV x 1 given @2330 yesterday Assessment & Plan VANCOMYCIN * 1100mg (19mg/kg) loading dose was given x 1 this AM at 0206 * This loading dose should have produced a peak conc of ~25-30mcg/mL * She has been hypotensive and is currently requiring NE infusion at 0.08mcg/kg/ min to maintain MAP above 60. * SCr stable/unchanged over last 24 hours (SCr 2.1-->2.0); urine output nil * I suspect this patient will clear vancomycin very slowly and will not need redosed in the next 24 hrs as calculated half-life is ~46 hours * Will check random vancomycin level w/ am labs tomorrow and redose when level 15-20mcg/mL ZOSYN * 3.375gm IV (over 4 hours) IV Q 12 hours for eCrCl less than 20cc/min Pharmacy will continue to follow and will adjust dose/frequency as necessary. Thank you
--- NOTE | 2016-09-23 11:40 | Pharmacy Progress Note ---
Glycemic Control: Progress Nt Date of Service Sep 23, 2016. Scope Glycemic Pharmacist consulted by Marilyn VERGARA on 09/23/16 for glycemic control and to write orders per [facility] inpatient glycemic control protocol. Objective Accuchecks BSG (last 24hrs): Test 09/22/16 12:55 09/22/16 14:22 09/22/16 14:36 09/22/16 15:28 Random Glucose 65 mg/dl (70-99) Bedside Glucose 51 mg/dl (70-90) 56 mg/dl (70-90) 52 mg/dl (70-90) Test 09/22/16 16:18 09/22/16 17:22 09/22/16 18:25 09/22/16 22:27 Bedside Glucose 51 mg/dl (70-90) 66 mg/dl (70-90) 94 mg/dl (70-90) Random Glucose 32 mg/dl (70-99) Test 09/22/16 22:30 09/22/16 22:46 09/22/16 23:18 09/23/16 03:20 Bedside Glucose 32 mg/dl (70-90) 193 mg/dl (70-90) 154 mg/dl (70-90) Random Glucose 180 mg/dl (70-99) Laboratory Data (last 24hrs) Test 09/22/16 12:55 09/22/16 22:27 09/23/16 03:20 09/23/16 06:20 Anion Gap 17.0 mmol/L 14.0 mmol/L 12.0 mmol/L BUN/Creatinine Ratio 35.1 38.4 32.8 Blood Urea Nitrogen 74 mg/dl 69 mg/dl 66 mg/dl Creatinine 2.10 mg/dl 1.80 mg/dl 2.00 mg/dl Potassium Level 5.1 mmol/L 3.9 mmol/L 4.0 mmol/L Sodium Level 134 mmol/L 141 mmol/L 141 mmol/L White Blood Count 11.07 K/uL 10.95 K/uL Red Blood Count 5.38 M/uL 4.75 M/uL Hemoglobin 16.6 g/dL 14.0 g/dL Hematocrit 47.9 % 42.3 % Mean Corpuscular Volume 89.0 fL 89.1 fL Mean Corpuscular Hemoglobin 30.9 pg 29.5 pg Mean Corpuscular Hemoglobin Concent 34.7 g/dl 33.1 g/dl Platelet Count 463 K/uL 360 K/uL Mean Platelet Volume 9.9 fL 9.6 fL Neutrophils (%) (Auto) 76.1 % 80.9 % Lymphocytes (%) (Auto) 11.7 % 8.9 % Monocytes (%) (Auto) 11.7 % 9.3 % Eosinophils (%) (Auto) 0.0 % 0.1 % Basophils (%) (Auto) 0.1 % 0.1 % Neutrophils # (Auto) 8.43 K/uL 8.86 K/uL Lymphocytes # (Auto) 1.30 K/uL 0.97 K/uL Monocytes # (Auto) 1.29 K/uL 1.02 K/uL Eosinophils # (Auto) 0.00 K/uL 0.01 K/uL Basophils # (Auto) 0.01 K/uL 0.01 K/uL Recent Pertinent Medications Outpatient Anti-diabetic Regimen: * Lantus 22 units Q AM * Glimepiride 4mg PO TID? * Prandin 1mg PO TID w/ meals * Metformin XR 1gm PO BID * A1c = ? % The patient is currently receiving: * Basal insulin: Lantus -- units every -- hours * Correctional Insulin: Novolog Correction per scale ACHS Goal Range: Low 140 mg/dL - High 180 mg/dL Correction Factor: 35 mg/dL/unit * Prandial insulin: Per carb ratio of 1 unit per -- grams CHO consumed * Oral Agents: None currently Risk Factors for Insulin Resistance: * Steroids: may have received dexamethasone IV in the OR yesterday * Infection: possible sepsis; receiving empiric Vancomycin + Zosyn + Caspofungin * Pressors: Norepi @0.08mcg/kg/min * IVF: NS @ 125cc/hr was changed to D5-Normosol M @ 75cc/hr * Recent Surgery: POD # 1 s/p exp lap * Diet: NPO * Mechanical Ventilation yes: Assessment & Plan ASSESSMENT: 09/23/16 * 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 Her TERRANCE and anuria have led to accumulation of renally excreted oral hypoglycemics ( glimepiride, repaglinide, metformin) - which caused the severe hypoglycemia on admission and may produced prolonged hypoglycemia * Plan is to add dextrose to maintenance IVF's, no basal or prandial insulin will be ordered - rather will continue the correctional Novolog order alone at this time and follow BSG trend PLAN FOR INPATIENT GLYCEMIC CONTROL: * No basal insulin at this time * Continuing / changing correction factor to 35 mg/dl/unit * No prandial insulin at this time * Continuing goal range of Low 140 mg/dL - High 180 mg/dL * Please note that the plan above was derived based on current level of insulin resistance and hospital stress. These recommendations are appropriate for inpatient admission only. Plan of care upon discharge will need to be reassessed to avoid potential outpatient hypo/hyperglycemia. Thank you.
--- NOTE | 2016-09-23 11:52 | Surgery Progress Note ---
Surgery Progress Note Date of Service Sep 23, 2016. Subjective Post OP Day: 1 (s/p laparotomy with enterotomy and removal of gallstone ileus) patient currently on ventilator however awake and alert unable to obtain complete ROS due to being ventilated however did respond with nodding to any questions and pointing to areas of pain in abdomen. Did respond with a yes to abdominal pain which is an ache in the right and left abdomen. No severe or sharp pain. No chest pain Objective Vital Signs: Date Time Temp Pulse Resp B/P Pulse Ox O2 Delivery O2 Flow Rate FiO2 09/23/16 11:00 95 30 130/58 93 09/23/16 10:45 94 30 125/55 93 09/23/16 10:30 93 28 132/57 94 09/23/16 10:15 91 28 129/57 97 09/23/16 10:00 89 28 125/58 98 09/23/16 09:45 90 30 115/55 98 09/23/16 09:33 89 29 130/59 98 09/23/16 09:30 87 29 137/65 98 09/23/16 09:15 80 28 104/54 98 09/23/16 09:00 86 18 108/79 09/23/16 09:00 86 18 108/79 09/23/16 08:45 79 5 106/56 98 09/23/16 08:00 40 09/23/16 08:00 36.8 76 20 104/66 98 09/23/16 08:00 36.8 76 20 127/70 98 Mechanical Ventilator 09/23/16 08:00 98 CPAP 40 Mechanical Ventilator 09/23/16 07:45 74 24 113/59 98 09/23/16 07:30 73 27 110/58 97 09/23/16 07:30 40 09/23/16 07:15 73 22 111/62 98 09/23/16 07:00 70 22 112/71 09/23/16 06:00 72 20 91/54 97 Mechanical Ventilator 40 09/23/16 05:40 40 09/23/16 05:00 70 13 104/66 97 92/57 09/23/16 04:30 71 13 97/60 97 09/23/16 04:00 Mechanical Ventilator 40 09/23/16 04:00 40 09/23/16 04:00 36.4 66 15 94/69 98 78/58 09/23/16 03:30 65 14 87/50 98 09/23/16 03:01 71 17 113/49 97 84/55 09/23/16 02:45 50 09/23/16 02:00 68 12 103/68 98 Mechanical Ventilator 50 09/23/16 01:14 97 Mechanical Ventilator 50 09/23/16 01:00 79 14 90/73 97 85/51 09/23/16 00:50 81 12 91/55 97 09/23/16 00:35 76 15 100/61 97 95/54 09/23/16 00:20 84 17 95 09/23/16 00:00 36.8 83 16 100/71 94 100/59 09/22/16 23:59 Mechanical Ventilator 50 09/22/16 23:59 50 09/22/16 23:50 84 16 93 09/22/16 23:42 96 16 84/45 94 76/50 09/22/16 23:30 50 09/22/16 23:20 87 14 92/52 95 09/22/16 23:03 85 15 90/65 98 85/46 09/22/16 22:50 82 16 81/45 97 09/22/16 22:41 83 16 81/54 98 09/22/16 22:39 81 16 87/53 98 09/22/16 22:38 90 14 77/52 97 09/22/16 22:20 98 16 71/46 97 09/22/16 22:00 98 16 94/63 98 92/58 09/22/16 21:50 86 16 81/50 99 09/22/16 21:20 104 16 70/51 98 09/22/16 21:00 90 18 85/62 98 80/43 09/22/16 20:59 36.5 92 19 80/64 98 73/50 09/22/16 20:31 50 09/22/16 20:00 50 09/22/16 20:00 Mechanical Ventilator 50 09/22/16 19:35 36.5 104 16 114/75 94 Mechanical Ventilator 50 98/57 09/22/16 19:25 36.5 105 14 107/88 93 Mechanical Ventilator 50 107/88 09/22/16 19:15 36.5 103 13 116/75 94 Mechanical Ventilator 50 103/67 09/22/16 19:05 36.5 110 19 148/87 93 Mechanical Ventilator 50 118/70 09/22/16 18:59 36.5 101 19 148/87 93 Mechanical Ventilator 50 118/70 09/22/16 18:55 109 21 169/105 91 Mechanical Ventilator 10 143/78 09/22/16 18:55 109 21 169/105 91 Mechanical Ventilator 10 143/78 09/22/16 18:45 109 21 169/105 91 Mechanical Ventilator 10 143/78 09/22/16 18:35 105 19 157/102 91 Mechanical Ventilator 10 143/79 09/22/16 18:25 103 14 127/85 91 Ambu-Bag 10 118/67 09/22/16 18:15 90 18 108/87 93 Ambu-Bag 10 106/61 09/22/16 18:13 50 09/22/16 18:07 36.6 89 16 106/63 96 Ambu-Bag 10 91/54 09/22/16 13:34 98 18 111/55 93 Room Air 09/22/16 11:27 36.9 93 24 124/76 95 Room Air Physical Exam: nasogastric drainage (liquid brown) Head: normocephalic, atraumatic, + pertinent finding (NG tube in the left nares , ET tube present) Neck: + pertinent finding (right internal jugular central line present) Respiratory/Chest: lungs clear (with some crackles at base on ventilator), no respiratory distress, no accessory muscle use, + crackles Cardiovascular: regular rate, rhythm, no murmur Abdomen: soft, + distended (slightly distended), + tenderness (appropriate post op, no rigidity, guarding, or peritonitis) Incision(s): clean, dry (dressing clean and dry, incision not evaluate given POD # 1) Extremities: non-tender, no pedal edema, + pertinent finding (there is some edema present of the bilateral upper extremities however no pitting edema) Laboratory Results: Results Past 24 Hours Test 09/22/16 12:55 09/22/16 14:22 09/22/16 14:35 09/22/16 14:36 Range/Units White Blood Count 11.07 4.8-10.8 K/uL Red Blood Count 5.38 4.2-5.4 M/uL Hemoglobin 16.6 12.0-16.0 g/dL Hematocrit 47.9 37-47 % Mean Corpuscular Volume 89.0 80-100 fL Mean Corpuscular Hemoglobin 30.9 25-34 pg Mean Corpuscular Hemoglobin Concent 34.7 32-36 g/dl Platelet Count 463 130-400 K/uL Mean Platelet Volume 9.9 7.4-10.4 fL Neutrophils (%) (Auto) 76.1 % Lymphocytes (%) (Auto) 11.7 % Monocytes (%) (Auto) 11.7 % Eosinophils (%) (Auto) 0.0 % Basophils (%) (Auto) 0.1 % Neutrophils # (Auto) 8.43 1.4-6.5 K/uL Lymphocytes # (Auto) 1.30 1.2-3.4 K/uL Monocytes # (Auto) 1.29 0.11-0.59 K/uL Eosinophils # (Auto) 0.00 0-0.5 K/uL Basophils # (Auto) 0.01 0-0.2 K/uL RDW Standard Deviation 48.2 36.4-46.3 fL RDW Coefficient of Variation 15.0 11.5-14.5 % Immature Granulocyte % (Auto) 0.4 % Immature Granulocyte # (Auto) 0.04 0.00-0.02 K/uL Sodium Level 134 136-145 mmol/L Potassium Level 5.1 3.5-5.1 mmol/L Chloride Level 93 98-107 mmol/L Carbon Dioxide Level 24 21-32 mmol/L Anion Gap 17.0 3-11 mmol/L Blood Urea Nitrogen 74 7-18 mg/dl Creatinine 2.10 0.60-1.20 mg/dl Est Creatinine Clear Calc Drug Dose 13.6 ml/min Estimated GFR () 23.8 Estimated GFR (Non- 20.5 BUN/Creatinine Ratio 35.1 10-20 Random Glucose 65 70-99 mg/dl Lactic Acid Level 4.3 0.4-2.0 mmol/L Calcium Level 8.1 8.5-10.1 mg/dl Total Bilirubin 1.2 0.2-1 mg/dl Direct Bilirubin 0.5 0-0.2 mg/dl Aspartate Amino Transf (AST/SGOT) 88 15-37 U/L Alanine Aminotransferase (ALT/SGPT) 34 12-78 U/L Alkaline Phosphatase 350 45-117 U/L Total Protein 6.5 6.4-8.2 gm/dl Albumin 2.5 3.4-5.0 gm/dl Lipase 41 73-393 U/L Bedside Glucose 51 56 70-90 mg/dl Urine Color DK YELLOW Urine Appearance CLOUDY CLEAR Urine pH 5.0 4.5-7.5 Urine Specific [place] 1.023 1.000-1.030 Urine Protein 1+ NEG Urine Glucose (UA) NEG NEG Urine Ketones TRACE NEG Urine Occult Blood NEG NEG Urine Nitrite NEG NEG Urine Bilirubin NEG NEG Urine Urobilinogen NEG NEG Urine Leukocyte Esterase SMALL NEG Urine WBC (Auto) 1-5 0-5 /hpf Urine RBC (Auto) 0-4 0-4 /hpf Urine Hyaline Casts (Auto) 5-10 0-5 /lpf Urine Epithelial Cells (Auto) 20-30 0-5 /lpf Urine Bacteria (Auto) NEG NEG Test 09/22/16 15:28 09/22/16 16:12 09/22/16 16:18 09/22/16 17:22 Range/Units Bedside Glucose 52 51 66 70-90 mg/dl Bedside Blood Gas pH (LAB) 7.32 7.35-7.45 Bedside Blood Gas pCO2 (LAB) 46 35-46 mmHg Bedside Blood Gas pO2 (LAB) 168 80-95 mmHg Bedside Blood Gas HCO3 (LAB) 24 19-24 meq/L Bedside Blood Gas Total CO2 25 24-31 mEq/l Bedside Blood Gas Base Excess (LAB) -2.0 -9-1.8 meq/L Bedside Blood Gas O2 Saturation 99.0 90-95 % Test 09/22/16 18:25 09/22/16 19:32 09/22/16 22:27 09/22/16 22:30 Range/Units Bedside Glucose 94 32 70-90 mg/dl Prothrombin Time 13.7 9.0-12.0 SECONDS Prothromb Time International Ratio 1.3 0.9-1.1 Activated Partial Thromboplast Time 29.6 21.0-31.0 SECONDS Partial Thromboplastin Ratio 1.1 Sodium Level 141 136-145 mmol/L Potassium Level 3.9 3.5-5.1 mmol/L Chloride Level 106 98-107 mmol/L Carbon Dioxide Level 21 21-32 mmol/L Anion Gap 14.0 3-11 mmol/L Blood Urea Nitrogen 69 7-18 mg/dl Creatinine 1.80 0.60-1.20 mg/dl Est Creatinine Clear Calc Drug Dose 15.8 ml/min Estimated GFR () 28.6 Estimated GFR (Non- 24.7 BUN/Creatinine Ratio 38.4 10-20 Random Glucose 32 70-99 mg/dl Lactic Acid Level 3.7 0.4-2.0 mmol/L Calcium Level 6.2 8.5-10.1 mg/dl Prealbumin 7.8 20-40 mg/dl Chemistry Specimen Hemolysis Test 09/22/16 22:46 09/22/16 23:18 09/23/16 00:24 09/23/16 01:10 Range/Units Bedside Glucose 193 154 70-90 mg/dl Bedside Glucose (other) 147 70-99 mg/dl Random Cortisol 147.92 mcg/dl Test 09/23/16 01:17 09/23/16 02:18 09/23/16 03:13 09/23/16 03:20 Range/Units Bedside Glucose (other) 180 192 218 70-99 mg/dl Venous Blood pH 7.30 7.36-7.41 Venous Blood Partial Pressure CO2 43 38.0-50.0 mmHg Venous Blood Partial Pressure O2 37 mmHg Venous Blood HCO3 21 mmol/L Venous Blood Oxygen Saturation < 60.0 % Venous Blood Base Excess -5.3 mmol/L Sodium Level 141 136-145 mmol/L Potassium Level 4.0 3.5-5.1 mmol/L Chloride Level 107 98-107 mmol/L Carbon Dioxide Level 22 21-32 mmol/L Anion Gap 12.0 3-11 mmol/L Blood Urea Nitrogen 66 7-18 mg/dl Creatinine 2.00 0.60-1.20 mg/dl Est Creatinine Clear Calc Drug Dose 13.4 ml/min Estimated GFR () 25.2 Estimated GFR (Non- 21.7 BUN/Creatinine Ratio 32.8 10-20 Random Glucose 180 70-99 mg/dl Lactic Acid Level 3.9 0.4-2.0 mmol/L Calcium Level 5.4 8.5-10.1 mg/dl Phosphorus Level 4.5 2.5-4.9 mg/dl Magnesium Level 1.8 1.8-2.4 mg/dl Total Bilirubin 0.7 0.2-1 mg/dl Aspartate Amino Transf (AST/SGOT) 57 15-37 U/L Alanine Aminotransferase (ALT/SGPT) 18 12-78 U/L Alkaline Phosphatase 180 45-117 U/L Total Protein 3.9 6.4-8.2 gm/dl Albumin 1.4 3.4-5.0 gm/dl Globulin 2.5 2.5-4.0 gm/dl Albumin/Globulin Ratio 0.6 0.9-2 Test 09/23/16 04:23 09/23/16 06:14 09/23/16 06:18 09/23/16 06:20 Range/Units Bedside Glucose (other) 151 119 70-99 mg/dl Ionized Calcium 0.79 1.12-1.32 mmol/l White Blood Count 10.95 4.8-10.8 K/uL Red Blood Count 4.75 4.2-5.4 M/uL Hemoglobin 14.0 12.0-16.0 g/dL Hematocrit 42.3 37-47 % Mean Corpuscular Volume 89.1 80-100 fL Mean Corpuscular Hemoglobin 29.5 25-34 pg Mean Corpuscular Hemoglobin Concent 33.1 32-36 g/dl Platelet Count 360 130-400 K/uL Mean Platelet Volume 9.6 7.4-10.4 fL Neutrophils (%) (Auto) 80.9 % Lymphocytes (%) (Auto) 8.9 % Monocytes (%) (Auto) 9.3 % Eosinophils (%) (Auto) 0.1 % Basophils (%) (Auto) 0.1 % Neutrophils # (Auto) 8.86 1.4-6.5 K/uL Lymphocytes # (Auto) 0.97 1.2-3.4 K/uL Monocytes # (Auto) 1.02 0.11-0.59 K/uL Eosinophils # (Auto) 0.01 0-0.5 K/uL Basophils # (Auto) 0.01 0-0.2 K/uL RDW Standard Deviation 49.0 36.4-46.3 fL RDW Coefficient of Variation 15.3 11.5-14.5 % Immature Granulocyte % (Auto) 0.7 % Immature Granulocyte # (Auto) 0.08 0.00-0.02 K/uL Toxic Granulation 1+ Test 09/23/16 09:21 09/23/16 09:51 Range/Units Prothrombin Time 14.7 9.0-12.0 SECONDS Prothromb Time International Ratio 1.4 0.9-1.1 Activated Partial Thromboplast Time 35.0 21.0-31.0 SECONDS Partial Thromboplastin Ratio 1.3 Lactic Acid Level 3.6 0.4-2.0 mmol/L Bedside Glucose (other) 75 70-99 mg/dl Microbiology Results 09/22/16 Blood Culture, Received Pending 09/22/16 Blood Culture, Received Pending 09/22/16 MRSA DNA Surveillance Screen - Final, Complete Specimen Negative for MRSA by DNA Probe Assessment & Plan POD # 1 s/p exploratory laparotomy and enterotomy with removal of gallstone - Leukocytosis of 10.9 - Vital signs showing Tachycardia, Tachypnea, and Hypotension - Still on Mechanical Ventilator - Lactic acid 3.6 (3.9 ,6 hours previously and 4.3 pre-operatively - Abdominal pain appropriate post op - Dressing clean and dry Plan: Continue current management established by [facility] and Medicine services Continue NPO and NGT to LIS Continue Lui Catheter Strict I&Os Hopeful patient can be weened off ventilator today Pt seen and examined. Agree with history and physical above. Awake and responsive. Lactic acid is slowly decreasing but still elevated. Appreciate nephrology/ icu/ medicine care. She had very dilated small bowel with fecalization of bowel contents with history of prior postop constipation following her last surgery. Would keep ng tube until clear return of bowel function (flatus, less distention). Remaining management as per other teams.
[2016-09-23] MEDS ORDERED: METOPROLOL TARTRATE 1 MG/ML VIAL IV SCH ×3 (12:50→20:00)
--- NOTE | 2016-09-23 14:04 | Clinical Documentation Query ---
Dr. [facility] : CLINICAL DOCUMENTATION QUERIES QUERY 1 OF 2 Patient is an 89 year old female admitted to ICU postoperatively after exploratory laparotomy, enterotomy, and removal of gallstone responsible for distal ileus obstruction. She arrived hypotensive. Propofol was discontinued and Precedex was initiated. Norepinephrine infusion being titrated to MAP and monitored via arterial line. Anion gap was 17 on admission now 14. Antibiotic coverage was increased in light of hypotension per gathering machine setter consultation to include Cefazolin, Vancomycin, Zosyn, and Caspofungin. Lactic acid 4.3 on admission, only down to 3.9 this a.m. despite aggressive IVF resuscitation and above therapies. In your clinical opinion is this patient being managed for: (X) Septic Shock unclear if Postprocedural ( ) Other explanation of clinical findings (Please Explain) ( ) Unable to determine (Please Define) ( ) Need to Discuss ( ) Not Agree The medical record reflects the following clinical findings, treatment, and risk factors. 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 QUERY 2 OF 2 Admission BUN, creatinine, and estimated GFR were 74 mg/dl, 2.10 mg/dl, and 20 ml/min. UA demonstrated dark urine with casts. Urinary output on 09/22 from - was 30 ml and only 8 ml's from -. Nephrology to see in consultation. In your clinical opinion is this patient being managed for: ( X ) Acute kidney failure likely with tubular necrosis ( ) Other explanation of clinical findings (Please Explain) ( ) Unable to determine (Please Define) ( ) Need to Discuss ( ) Not Agree The medical record reflects the following clinical findings, treatment, and risk factors. Clinical Indicators: As above Treatment: IVF, nephrology consultation Risk Factors: Surgery, hypotension Please clarify and document your clinical opinion in the progress notes and discharge summary. Terms such as "probable", "suspected", "likely", "questionable", "possible", or "still to be ruled out" are acceptable. IF IN AGREEMENT, YOU MUST DOCUMENT ABOVE DIAGNOSTIC STATEMENT IN DAILY PROGRESS NOTES AND DISCHARGE SUMMARY. This document is not part of the patient's record. Thank You, Juan Nath, RN [phone]
[2016-09-23] MEDS: DEXTROSE 50% 50 ML SYR IV PRN ×3 (14:39→22:05)
[2016-09-23] MEDS: FENTANYL CITRATE INJ 50 MCG/1 ML 2 ML VIAL IV PRN ×2 (17:03→23:00)
[2016-09-23] MEDS ORDERED: METOPROLOL TARTRATE 1 MG/ML VIAL IV STA (17:45)
[2016-09-23 18:15] LABS: ISTAT ARTERIAL BLOOD GAS HCO3 14 meq/L (19-24); ISTAT ARTERIAL BLOOD GAS PCO2 31 mmHg (35-46); ISTAT ARTERIAL BLOOD GAS PO2 84 mmHg (80-95); ISTAT ARTERIAL BLOOD GAS pH 7.26 (7.35-7.45); ISTAT CARBON DIOXIDE 15 mEq/l (24-31); ISTAT DELIVERY SYSTEM Ventilator; ISTAT FIO2 35 %; ISTAT PEEP 5; ISTAT SITE Art Line
[2016-09-23] MEDS ORDERED: BUMETANIDE IV 1 MG in SYRINGE 0 ML IV ONE (20:15)
[2016-09-23] MEDS ORDERED: CASPOFUNGIN INJ 50 MG in SODIUM CHLORIDE 0.9% 250ML 250 ML IV SCH (22:00)
[2016-09-23] MEDS ORDERED: AMIODARONE IV BOLUS / DRIP IV STA (22:49)
[2016-09-23] MEDS: MIDAZOLAM HCL 1 MG/ML 2ML VIAL IV PRN (23:00)
[2016-09-23 23:09] LABS: ISTAT ARTERIAL BLOOD GAS HCO3 13 meq/L (19-24); ISTAT ARTERIAL BLOOD GAS PCO2 26 mmHg (35-46); ISTAT ARTERIAL BLOOD GAS PO2 78 mmHg (80-95); ISTAT ARTERIAL BLOOD GAS pH 7.31 (7.35-7.45); ISTAT CARBON DIOXIDE 14 mEq/l (24-31); ISTAT HEMATOCRIT 40 % (37-47); ISTAT HEMOGLOBIN 13.6 g/dl (12.0-16.0); ISTAT SODIUM 136 mEq/L (135-144)
[2016-09-23] MEDS ORDERED: AMIODARONE / D5W 100 ML IV STA (23:14)
[2016-09-23] MEDS ORDERED: AMIODARONE / D5W 200 ML IV ONE (23:30)
[2016-09-24] VITALS (51 sets, daily range): BP systolic 39–135; BP diastolic 24–87; PULSE 58–88; TEMP 36.4–36.8; O2SAT 83–98
[2016-09-24] MEDS ORDERED: METOPROLOL TARTRATE 1 MG/ML VIAL IV. SCH
[2016-09-24] MEDS: MIDAZOLAM HCL 1 MG/ML 2ML VIAL IV PRN ×2 (02:26→05:28)
--- NOTE | 2016-09-24 02:54 | Critical Care Progress Note ---
Critical Care Progress Note Date of Service Sep 23, 2016. Critical Care Progress Note Cardioversion x 2 s/p A. Fib RVR with increased hypotension: Pt was noted to become tachycardic in the 120-140's after having previously been low 90s. Several times during the evening there was suspicion that the Arterial line while still flushing and drawing with ease, was not correlating to the peripheral cuff and the wave form had dampened. Upon entering the room the A. Line was reading in the 40s systolically; however, I highly doubted this was accurate as I could readily palpate pedal pulses. A STAT EKG was obtained that confirmed pt was in A Fib with RVR. Respiratory was at the bedside and placed pt back to prior Vol AC settings on her ventilator, as she had been on CPAP for most of the day. An ABG was also obtained with Lactic and Electrolytes included. Lactic was minimally elevated and Electrolytes were WNL. Several attempts were made to get an automated cuff; which continued to time out. Nursing obtained a manual cuff and a peripheral pressure could not be obtained. Levophed was increased from 0.15 to 0.2. Pt was alert and answering questions appropriately. Ultimately, a thigh cuff was placed and a blood pressure with a SBP in the high 40's was noted. Cardioversion pads had just been applied to the pt and pt was cardioverted with 120 joules after receiving 2 of Versed and 25 of Fentanyl. Initially pt converted into NSR, but within a few moments she returned to A. fib. Again time was taken to verify pts hemodynamic stability. Joules were increased to 200 and she was again shocked. Amiodarone had been hung with bolus running just after initial shock. Pt converted and HR improved to the 70-80's in NSR. Thigh cuff obtained a systolic pressure in the 90's. Prior to leaving pt, she began to arouse from sedation and answered questions with nodding of her head appropriately. She followed simple commands as well. I have personally evaluated and examined this patient. I agree with assessment and plan of Marilyn Rosado PA-C. I was notified by Marilyn Rosado of bradycardic arrest. Please see Code flow sheet for further documentation. Immediately proceeded to [facility] and upon my arrival patient had Teofilo recovered from the bradycardic arrest and was mentating following commands. She was started on Levophed and given several amps of bicarbonate for a metabolic acidosis. My concern is that her kidney failure and possible intra-abdominal sepsis is leading to a metabolic acidosis for which she cannot compensate from respiratory standpoint. She was placed on full ventilatory support. We notified the family of the acute change and requested that they come to the bedside. I had a long discussion with the patient's son who was the healthcare power of attorney law clerk as well as another son. We were attempting to get records from her oncologist at [facility]. However the patient became acidotic again and started to become bradycardic. The critical care team started to increase her vasoactive requirements, she had already been placed on vasopressin. At that point the patient's son who was the healthcare power of attorney law clerk requested that all further life-sustaining measures be stopped and they focus on the patient's comfort. The patient at 1200. I have personally spent 60 minutes of critical care time in the direct management of this patient. This is a life/limb threatening event. This includes time spent evaluating patient, direct bedside care, chart review, placing orders, interpretation of diagnostic studies, discussion with consultants, patient, and family members, as well as other required patient management activities. This time is exclusive of all separately billable procedures, and teaching time and separate from and in addition to any other critical care service time.
[2016-09-24] MEDS ORDERED: SODIUM BICARB 8.4% INJ 50 MEQ/50 ML SYR IV ONE ×2 (05:06→13:44)
[2016-09-24] MEDS ORDERED: NURSING VERBAL MED ORDER STA (05:09)
[2016-09-24 05:22] LABS: ISTAT ARTERIAL BLOOD GAS HCO3 6 meq/L (19-24); ISTAT ARTERIAL BLOOD GAS PCO2 20 mmHg (35-46); ISTAT ARTERIAL BLOOD GAS PO2 87 mmHg (80-95); ISTAT CARBON DIOXIDE 7 mEq/l (24-31); ISTAT DELIVERY SYSTEM Ventilator; ISTAT FIO2 35 %; ISTAT PEEP 5; ISTAT RATE 20; ISTAT SITE Art Line; Vt 500
[2016-09-24] MEDS: FENTANYL CITRATE INJ 50 MCG/1 ML 2 ML VIAL IV PRN (05:29)
[2016-09-24] MEDS ORDERED: SOD CHLOR 14.6% 2.5MEQ/ML 38.5 MEQ, SODIUM BICARBONATE 8.4% INJ 100 MEQ in STERILE WATE... IV SCH (05:30)
[2016-09-24] MEDS ORDERED: AMIODARONE / D5W 200 ML IV SCH (05:30)
[2016-09-24 05:50] LABS: ISTAT ARTERIAL BLOOD GAS HCO3 21 meq/L (19-24); ISTAT ARTERIAL BLOOD GAS PCO2 31 mmHg (35-46); ISTAT ARTERIAL BLOOD GAS PO2 112 mmHg (80-95); ISTAT ARTERIAL BLOOD GAS pH 7.44 (7.35-7.45); ISTAT CARBON DIOXIDE 22 mEq/l (24-31); ISTAT DELIVERY SYSTEM Ventilator; ISTAT FIO2 100 %; ISTAT PEEP 5; ISTAT RATE 30; ISTAT SITE Art Line; Vt 500
[2016-09-24 05:54] LABS: CALCIUM < 5.0 mg/dl (8.5-10.1)
[2016-09-24 05:57] LABS: BLOOD UREA NITROGEN 60 mg/dl (7-18); GLUCOSE 137 mg/dl (70-99)
[2016-09-24 05:58] LABS: ALB/GLOB RATIO 0.6 (0.9-2); ALKALINE PHOSPHATASE 108 U/L (45-117); ALT/SGPT 33 U/L (12-78); AST/SGOT 173 U/L (15-37); BUN/CREATININE RATIO 27.3 (10-20); CARBON DIOXIDE 45 mmol/L (21-32); CHLORIDE 103 mmol/L (98-107); CKMB/CK RATIO 2.5 (0-3.0); PHOSPHORUS 6.5 mg/dl (2.5-4.9); POTASSIUM 4.9 mmol/L (3.5-5.1); SODIUM 159 mmol/L (136-145); THYROID STIMULATING HORMONE 0.467 uIu/ml (0.300-4.500)
[2016-09-24] MEDS ORDERED: IPRATROPIUM BROMIDE HFA INHALER INH SCH (06:00)
[2016-09-24] MEDS: INSULIN ASPART 100 UNITS/ML 3 ML PEN SC SCH ×3 (06:00→11:10)
[2016-09-24] MEDS ORDERED: ALBUTEROL HFA 8 GM INHALER INH SCH (06:00)
[2016-09-24] MEDS: PIPERACILL/TAZOBAC IV 3.375 GM in DEXTROSE 5% 100ML IV SCH (06:24)
[2016-09-24 06:27] LABS: ESTIMATED AVERAGE GLUCOSE 157 mg/dl; HA1C FLAG Normal (Normal)
[2016-09-24 06:27] LABS: BUN/CREATININE RATIO 24.5 (10-20); CREATININE 2.5 mg/dl (0.60-1.20)
[2016-09-24] MEDS ORDERED: CALCIUM GLUCONATE 10% 2,000 MG in SODIUM CHLORIDE 0.9% 50ML 50 ML IV ONE ×2 (06:30→07:30)
--- NOTE | 2016-09-24 06:40 | DIAGNOSTIC IMAGING REPORT ---
CHEST ONE VIEW PORTABLE CLINICAL HISTORY: Respiratory failure COMPARISON STUDY: 09/23/2016 FINDINGS: There is an endotracheal tube 3 cm above the aaron. There is a nasogastric tube within the stomach. There are overlying cardiac electrodes. Surgical clips project over each axillary region. The study is somewhat apical lordotic. There are subtle airspace opacities within the right upper lung zone and right lung base. There is improving aeration the left lung base.[ IMPRESSION: 1. Technically limited study 2. Interval repositioning of the endotracheal tube which is currently 3 cm above the aaron 3. Improving aeration the left lung base 4. Subtle airspace opacities within the right upper lung zone and right lung base. Electronically signed by: Ahmet Kaur M.D. 09/24/2016 6:39 AM Dictated Date/Time: 09/24/2016 6:37 AM
[2016-09-24 07:04] LABS: COMPLETE YES; ECHINOCYTES 1+; GIANT PLATELETS 2+; HEMATOCRIT 35.4 % (37-47); LYMPH ABS # 1.26 K/uL (1.2-3.4); MEAN CELL VOLUME 91.9 fL (80-100); MEAN CORPUSCULAR HEMOGLOBIN 29.4 pg (25-34); MEAN CORPUSCULAR HGB CONC 31.9 g/dl (32-36); MEAN PLATELET VOLUME 10.1 fL (7.4-10.4); META ABS # 0.28 K/uL (0-0); METAMYELOCYTE % 6.1 %; MYELOCYTE % 1.7 %; NEUTROPHILS % 61.7 %; PLATELET COUNT 157 K/uL (130-400); POLYCHROMASIA 1+; RED BLOOD COUNT 3.85 M/uL (4.2-5.4); TOXIC GRANULATION 1+; WHITE BLOOD COUNT 4.67 K/uL (4.8-10.8)
--- NOTE | 2016-09-24 07:15 | Nephrology Progress Note ---
Nephrology Progress Note Date of Service: Sep 24, 2016. Subjective 89 yo female who had an eventful night last night where patient was in afib and required cardioversion x 2 and currently on amiodarone. pt early this morning also louise down and coded where chest compressions were initiated as well as medications and bicarb administration. noted to have low calcium as well and given iv calcium supplementation. pt now comfortable, on 60%fio2 and following commands. on amio and pressors. Objective Date Time Temp Pulse Resp B/P Pulse Ox O2 Delivery O2 Flow Rate FiO2 09/24/16 05:56 60 09/24/16 05:00 100 09/24/16 03:19 85 26 104/85 83 09/24/16 03:17 74 29 59/39 91 09/24/16 03:16 75 27 58/39 90 09/24/16 03:01 75 26 62/41 97 09/24/16 03:00 75 18 119/74 92 09/24/16 02:46 76 28 67/44 91 09/24/16 02:45 75 29 110/72 91 09/24/16 02:34 75 27 76/48 09/24/16 02:31 76 25 74/47 09/24/16 02:16 79 21 88/70 09/24/16 02:16 79 21 88/70 09/24/16 02:15 78 23 83/46 09/24/16 02:09 35 09/24/16 02:00 81 19 82/66 88 09/24/16 01:45 82 20 109/78 90 09/24/16 01:30 80 17 100/87 09/24/16 01:15 83 25 99/75 94 09/24/16 01:00 80 29 108/67 94 09/24/16 00:55 81 29 104/69 94 09/24/16 00:50 77 30 106/69 96 09/24/16 00:45 80 28 115/72 96 09/24/16 00:40 80 31 112/78 93 09/24/16 00:35 80 33 116/68 93 09/24/16 00:30 78 33 118/70 96 09/24/16 00:25 77 30 109/65 95 09/24/16 00:20 77 37 100/67 95 09/24/16 00:15 78 25 110/70 92 09/24/16 00:10 75 27 111/76 96 09/24/16 00:05 76 26 110/69 95 09/24/16 00:01 36.8 09/24/16 00:00 76 24 112/69 95 09/23/16 23:59 35 09/23/16 23:59 95 Mechanical Ventilator 35 09/23/16 23:00 35 09/23/16 22:35 35 09/23/16 22:00 91 26 106/49 96 Mechanical Ventilator 35 09/23/16 21:00 93 20 88/50 95 Mechanical Ventilator 35 09/23/16 20:26 35 09/23/16 20:00 35 09/23/16 20:00 Mechanical Ventilator 35 09/23/16 20:00 36.8 95 30 83/48 94 Mechanical Ventilator 35 09/23/16 18:00 89 30 96/50 97 Mechanical Ventilator 09/23/16 17:50 92 119/86 09/23/16 17:00 40 09/23/16 17:00 92 16 106/55 97 Mechanical Ventilator 35 09/23/16 16:00 36.6 94 29 112/55 97 Mechanical Ventilator 35 09/23/16 16:00 97 CPAP 35 Mechanical Ventilator 09/23/16 16:00 35 09/23/16 15:42 94 125/71 09/23/16 15:00 94 29 125/71 98 Mechanical Ventilator 09/23/16 14:17 40 09/23/16 14:00 97 26 106/77 98 09/23/16 13:00 98 30 135/76 95 130/68 09/23/16 12:59 114 145/66 09/23/16 12:00 36.6 103 20 145/66 96 CPAP Mechanical Ventilator 09/23/16 12:00 35 09/23/16 12:00 97 CPAP 35 Mechanical Ventilator 09/23/16 11:40 103 20 154/64 99 CPAP Mechanical Ventilator 09/23/16 11:30 40 09/23/16 11:00 95 30 130/58 93 09/23/16 10:45 94 30 125/55 93 09/23/16 10:30 93 28 132/57 94 09/23/16 10:15 91 28 129/57 97 09/23/16 10:00 89 28 125/58 98 09/23/16 10:00 36.8 89 28 108/79 98 09/23/16 09:45 90 30 115/55 98 09/23/16 09:33 89 29 130/59 98 09/23/16 09:30 87 29 137/65 98 09/23/16 09:15 80 28 104/54 98 09/23/16 09:00 86 18 108/79 09/23/16 09:00 86 18 108/79 09/23/16 08:45 79 5 106/56 98 09/23/16 08:00 40 09/23/16 08:00 36.8 76 20 104/66 98 09/23/16 08:00 36.8 76 20 127/70 98 Mechanical Ventilator 09/23/16 08:00 98 CPAP 40 Mechanical Ventilator 09/23/16 07:45 74 24 113/59 98 09/23/16 07:30 73 27 110/58 97 09/23/16 07:30 40 09/23/16 07:15 73 22 111/62 98 Physical Exam: General-awake, intubated, following commands Eyes-no scleral icterus ENT-+ng tube and +ET tube Neck-supple Lungs-cta anteriorly Heart-regular Abdomen-dressing in place, no bowel sounds noted Extremities-no c/c, +1 edema Neuro-nonfocal Current Inpatient Medications Medications (Trade) Dose Ordered Sig/Kurt Route Start Time Stop Time Status Last Admin Dose Admin Ondansetron HCl (Zofran Inj) 4 mg Q4H PRN IV 09/22/16 18:30 10/22/16 18:29 Miscellaneous Information 1 ea 1 ea UD PRN N/A 09/22/16 22:45 10/22/16 22:44 Thiamine HCl 100 mg/Syringe 10 ml @ 2 mls/min QAM IV 09/23/16 09:00 10/23/16 08:59 09/23/16 08:48 2 MLS/MIN Norepinephrine Bitartrate 8 mg/ Dextrose 508 ml @ 0 mls/hr Q0M PRN IV 09/22/16 22:40 10/22/16 22:39 09/22/16 23:49 21 MLS/HR Caspofungin/ Sodium Chloride (Cancidas Inj/ Nss 250ml) 260 ml @ 250 mls/hr Q24H IV 09/23/16 22:00 10/03/16 21:59 3/29/17 21:37 250 MLS/HR Piperacillin Sod/ Tazobactam Sod (Consult) 1 ea UD PRN N/A 09/23/16 02:00 10/23/16 01:59 Heparin Sodium (Porcine) (Heparin 10 Unit/ ml 5 ml Flush) 5 ml PRN PRN FLUSH 09/23/16 02:00 10/23/16 01:59 Insulin Aspart SLIDING SCALE Q6 SC 09/23/16 06:00 10/23/16 05:59 Future hold Piperacillin Sod/ Tazobactam Sod/ Dextrose (Zosyn Iv/D5 100ml) 115 ml @ 28.75 mls/ hr Q12H IV 09/23/16 06:00 10/03/16 05:59 09/24/16 06:24 28.75 MLS/HR Albumin Human 12.5 gm 12.5 gm BID IV 09/23/16 09:00 09/26/16 08:59 09/23/16 20:22 12.5 GM Parenteral Electrolyte Zora/ Dextrose (D5W Normosol-M) 1,000 ml @ 75 mls/hr [id number] IV 09/23/16 10:30 10/23/16 10:29 09/23/16 11:07 75 MLS/HR Midazolam HCl 1 mg 1 mg Q2H PRN IV 09/23/16 10:30 10/23/16 10:29 09/24/16 05:28 1 MG Acetaminophen/ Empty Bag (Ofirmev Iv/ Empty Iv Bag 100ml) 100 ml @ 400 mls/hr Q8H PRN IV 09/23/16 10:32 10/23/16 10:31 09/23/16 12:49 400 MLS/HR Fentanyl Citrate 25 mcg 25 mcg Q2H PRN IV 09/23/16 10:30 10/07/16 10:29 09/24/16 05:29 50 MCG Pantoprazole Sodium/Syringe (Protonix Inj/ Syringe) 10 ml @ 5 mls/min DAILY@11 IV 09/23/16 11:00 10/23/16 10:59 09/23/16 11:03 5 MLS/MIN Heparin Sodium (Porcine) (Heparin Sq 5000 Unit/0.5ml) 5,000 unit Q12 SQ 09/24/16 09:00 10/24/16 08:59 Glucose (Glucose 40% Gel) 15-30 GRAMS 15 GRAMS... UD PRN PO 09/23/16 10:45 10/23/16 10:44 Glucose (Glucose Chew Tab) 4-8 Tablets 4 Tabl... UD PRN PO 09/23/16 10:45 10/23/16 10:44 Dextrose (Dextrose 50% 50ML Syringe) 25-50ML OF 50% DW IV FOR... UD PRN IV 09/23/16 10:45 10/23/16 10:44 09/23/16 22:05 25 ML Glucagon 1 mg 1 mg UD PRN SQ 09/23/16 10:45 10/23/16 10:44 Amiodarone HCL/ Dextrose 200 ml @ 16.7 mls/hr [id number] IV 09/24/16 05:30 10/24/16 05:29 09/24/16 05:30 16.7 MLS/HR Levothyroxine Sodium/Syringe (Synthroid Inj/ Syringe) 2.2 ml @ 2 mls/min DAILY@09 IV 09/24/16 09:00 10/24/16 08:59 Albuterol (Ventolin Hfa Inhaler) 4 puffs Q6H INH 09/24/16 06:00 10/24/16 05:59 Ipratropium [place] 4 puffs 4 puffs Q6H INH 09/24/16 06:00 10/24/16 05:59 Sodium Chloride/ Sodium Bicarbonate/ Sterile Water (Sodium Chloride 14.6%/Sodium Bicarbonate 8.4% Inj/Sterile Water 1000 ml) 1,100 ml @ 1 mls/hr Q24H IV 09/24/16 05:30 10/24/16 05:29 Future Hold Last 24 Hours Test 09/23/16 09:21 09/23/16 09:51 09/23/16 12:05 09/23/16 14:42 Prothrombin Time 14.7 SECONDS Prothromb Time International Ratio 1.4 Activated Partial Thromboplast Time 35.0 SECONDS Partial Thromboplastin Ratio 1.3 Lactic Acid Level 3.6 mmol/L 3.1 mmol/L Bedside Glucose (other) 75 mg/dl Bedside Glucose 83 mg/dl Test 09/23/16 14:58 09/23/16 15:28 09/23/16 16:23 09/23/16 17:29 Bedside Glucose 231 mg/dl 126 mg/dl 90 mg/dl 73 mg/dl Test 09/23/16 17:54 09/23/16 18:13 09/23/16 18:36 09/23/16 20:16 Blood Gas Sample Site Art Line Bedside Blood Gas pH (LAB) 7.26 Bedside Blood Gas pCO2 (LAB) 31 mmHg Bedside Blood Gas pO2 (LAB) 84 mmHg Bedside Blood Gas HCO3 (LAB) 14 meq/L Bedside Blood Gas Total CO2 15 mEq/l Bedside Blood Gas Base Excess (LAB) -13.0 meq/L Bedside Blood Gas O2 Saturation 95.0 % Charlie Test NA Oxygen Delivery Device Ventilator Bedside FiO2 35 % Blood Gas PEEP 5 Bedside Glucose 73 mg/dl 148 mg/dl 97 mg/dl Test 09/23/16 22:03 09/23/16 22:37 09/23/16 22:57 09/24/16 00:50 Bedside Glucose (other) 68 mg/dl 120 mg/dl 106 mg/dl Bedside Hemoglobin 13.6 g/dl Bedside Hematocrit 40 % Bedside Blood Gas pH (LAB) 7.31 Bedside Blood Gas pCO2 (LAB) 26 mmHg Bedside Blood Gas pO2 (LAB) 78 mmHg Bedside Blood Gas HCO3 (LAB) 13 meq/L Bedside Blood Gas Total CO2 14 mEq/l Bedside Blood Gas Base Excess (LAB) -13.0 meq/L Bedside Blood Gas O2 Saturation 95.0 % Bedside Sodium 136 mEq/L Bedside Potassium 4.3 mEq/L Test 09/24/16 02:12 09/24/16 04:26 09/24/16 04:58 09/24/16 05:08 Bedside Glucose (other) 110 mg/dl 95 mg/dl Blood Gas Sample Site Art Line Bedside Blood Gas pH (LAB) 7.10 Bedside Blood Gas pCO2 (LAB) 20 mmHg Bedside Blood Gas pO2 (LAB) 87 mmHg Bedside Blood Gas HCO3 (LAB) 6 meq/L Bedside Blood Gas Total CO2 7 mEq/l Bedside Blood Gas Base Excess (LAB) -24.0 meq/L Bedside Blood Gas O2 Saturation 93.0 % Charlie Test NA Oxygen Delivery Device Ventilator Bedside Oxygen Rate (breaths/min) 20 Bedside FiO2 35 % Blood Gas Tidal Volume 500 Blood Gas PEEP 5 Creatine Kinase MB Ratio Test 09/24/16 05:10 09/24/16 05:35 09/24/16 05:43 09/24/16 05:46 Sodium Level 159 mmol/L 147 mmol/L Potassium Level 4.9 mmol/L 4.0 mmol/L Chloride Level 103 mmol/L 107 mmol/L Carbon Dioxide Level 45 mmol/L 21 mmol/L Anion Gap mmol/L 19.0 mmol/L Blood Urea Nitrogen 60 mg/dl 61 mg/dl Creatinine 2.20 mg/dl 2.50 mg/dl Est Creatinine Clear Calc Drug Dose 12.5 ml/min 11.8 ml/min Estimated GFR () 22.5 19.2 Estimated GFR (Non- 19.4 16.6 BUN/Creatinine Ratio 27.3 24.5 Random Glucose 137 mg/dl 104 mg/dl Estimated Average Glucose 157 mg/dl Hemoglobin A1c 7.1 % Lactic Acid Level 12.5 mmol/L Calcium Level < 5.0 mg/dl 5.0 mg/dl Phosphorus Level 6.5 mg/dl 8.0 mg/dl Magnesium Level 2.0 mg/dl 2.0 mg/dl Total Bilirubin 0.6 mg/dl Aspartate Amino Transf (AST/SGOT) 173 U/L Alanine Aminotransferase (ALT/SGPT) 33 U/L Alkaline Phosphatase 108 U/L Total Creatine Kinase 180 U/L Creatine Kinase MB 4.5 ng/ml Creatine Kinase MB Ratio 2.5 Troponin I 0.049 ng/ml Total Protein 1.9 gm/dl Albumin 0.7 gm/dl Globulin 1.2 gm/dl Albumin/Globulin Ratio 0.6 Thyroid Stimulating Hormone (TSH) 0.467 uIu/ml Free Thyroxine 0.73 ng/dl Random Vancomycin Level 8.0 mcg/ml Blood Gas Sample Site Art Line Bedside Blood Gas pH (LAB) 7.44 Bedside Blood Gas pCO2 (LAB) 31 mmHg Bedside Blood Gas pO2 (LAB) 112 mmHg Bedside Blood Gas HCO3 (LAB) 21 meq/L Bedside Blood Gas Total CO2 22 mEq/l Bedside Blood Gas Base Excess (LAB) -3.0 meq/L Bedside Blood Gas O2 Saturation 99.0 % Charlie Test NA Oxygen Delivery Device Ventilator Bedside Oxygen Rate (breaths/min) 30 Bedside FiO2 100 % Blood Gas Tidal Volume 500 Blood Gas PEEP 5 Bedside Glucose (other) 78 mg/dl White Blood Count 4.67 K/uL Red Blood Count 3.85 M/uL Hemoglobin 11.3 g/dL Hematocrit 35.4 % Mean Corpuscular Volume 91.9 fL Mean Corpuscular Hemoglobin 29.4 pg Mean Corpuscular Hemoglobin Concent 31.9 g/dl Platelet Count 157 K/uL Mean Platelet Volume 10.1 fL RDW Standard Deviation 51.2 fL RDW Coefficient of Variation 15.1 % Neutrophils % (Manual) 61.7 % Lymphocytes % (Manual) 27.0 % Monocytes % (Manual) 3.5 % Metamyelocytes % 6.1 % Myelocytes % 1.7 % Neutrophils # (Manual) 2.88 K/uL Total Absolute Neutrophils 2.88 K/uL Lymphocytes # (Manual) 1.26 K/uL Total Absolute Lymphocytes 1.26 K/uL Monocytes # (Manual) 0.16 K/uL Metamyelocytes # 0.28 K/uL Myelocytes # 0.08 K/uL Toxic Granulation 1+ Giant Platelets 2+ Polychromasia 1+ Echinocytes 1+ Ionized Calcium 0.74 mmol/l Assessment & Plan EAJ-mbyewvaj-zws-creatinine stable, no indication for emergent dialysis. continue supportive measures. does have third spacing of fluid. on pressors and albumin. Hypocalcemia-continue aggressive calcium supplementation. giving additional 2 grams of calcium for a total of 6 grams overnight. does have elevated phos, currently npo so unable to improve phos levels. may need a calcium drip if continues to be low. will recheck ionized calcium periodically throughout the day and replete aggressively. checking q4h. ABG this morning showed bicarb of 6 and electrolytes noted calcium <5, now back in the 20s with ionized calcium of 0.75. developed mild hypernatremia from the sodium bicarb administration and bicarb may also lower the calcium levels more. will continue to replete the calcium levels aggressively throughout the day to try to stabilize her electrolytes.
[2016-09-24] MEDS ORDERED: FENTANYL 1250MCG/250ML NSS IV PRN (08:30)
[2016-09-24] MEDS: THIAMINE HCL INJ 100 MG in SYRINGE 9 ML IV SCH (08:58)
[2016-09-24] MEDS ORDERED: HEPARIN SOD 5000 UNIT/0.5 ML CARP SQ SCH (09:00)
[2016-09-24] MEDS ORDERED: LEVOTHYROXINE SODIUM INJ 44 MCG in SYRINGE 0 ML IV SCH (09:00)
[2016-09-24] MEDS: ALBUMIN HUMAN 25% 12.5 GM/50 ML VIAL IV SCH (09:00)
--- NOTE | 2016-09-24 09:35 | Progress Note ---
Internal Med Progress Note Date of Service: Sep 24, 2016. Provider Documentation: SUBJECTIVE: Patient is seen and examined at bedside. Patient had Cardioversion x 2 for A. Fib RVR and hypotension overnight. Currently Intubated, on pressors, amiodarone ggt. Afebrile. OBJECTIVE: Vital Signs-as noted below Physical Exam: General Appearance:Moderately built and nourished, currently intubated, awake off sedation Head: normocephalic, Atraumatic Eyes: normal inspection, EOMI, PERRL Neck: supple, Trachea midline Respiratory/Chest: B/L air entry. Coarse breath sounds Cardiovascular: S1, S2, No murmur Abdomen/GI:Soft, mild tender, Bowel sounds diminished, Surgical site in bandage Extremities/Musculoskelatal:normal inspection, no edema Neurologic/Psych:Alert, Awake off sedation. Complete neuro exam not performed as currently intubated Skin: normal color, warm Lab data as noted below. ASSESSMENT & PLAN: GALLSTONE ILEUS: SEPTIC SHOCK: S/P Explorative laparotomy, enterotomy and stone removal POD #2 Patient presented with abd pain, nausea, vomiting, decreased oral intake Continue broad spectrum IV antibiotics Follow up cultures: No growth to date Surgery on board Monitor Lactic acid Continue respiratory support per critical care Afib: On amiodarone TERRANCE: Likely ATN secondary to septic shock Baseline Cr: 0.8 Cr levels:2.5 today Third spacing Avoid nephrotoxic agents Appreciate Nephrology input On Albumin, Pressors Renal USD: No hydronephrosis Hypocalcemia: In setting of lactic acidosis and sepsis. 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 No hydronephrosis. 2. Moderate to marked renal atrophy. ECHO: * Ejection Fraction = 50-55%. 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 * Doppler interrogation and 2D imaging are discordant. Severe aortic stenosis is suspected. * Grade I diastolic dysfunction, (abnormal relaxation pattern). Vital Signs: Date Time Temp Pulse Resp B/P Pulse Ox O2 Delivery O2 Flow Rate FiO2 09/24/16 07:29 60 09/24/16 06:30 73 30 123/63 92 09/24/16 06:15 76 30 92/80 92 09/24/16 06:00 77 24 106/65 95 09/24/16 05:56 60 09/24/16 05:50 77 13 87/60 95 09/24/16 05:49 77 10 60/39 94 09/24/16 05:46 77 13 63/41 96 09/24/16 05:45 76 32 62/41 95 09/24/16 05:30 80 17 117/63 09/24/16 05:18 86 13 109/73 09/24/16 05:15 88 20 80/49 09/24/16 05:00 100 09/24/16 04:49 58 16 47/29 09/24/16 04:45 58 16 39/24 09/24/16 04:43 58 25 39/25 09/24/16 04:41 59 29 45/33 09/24/16 04:31 60 29 82/34 09/24/16 04:30 35 09/24/16 04:30 95 Mechanical Ventilator 35 09/24/16 04:30 61 29 51/34 09/24/16 04:16 64 31 50/34 89 09/24/16 04:15 65 27 50/34 88 09/24/16 04:01 65 16 88/64 89 09/24/16 04:00 67 17 53/36 93 09/24/16 04:00 36.5 09/24/16 03:19 85 26 104/85 83 09/24/16 03:17 74 29 59/39 91 09/24/16 03:16 75 27 58/39 90 09/24/16 03:01 75 26 62/41 97 09/24/16 03:00 75 18 119/74 92 09/24/16 02:46 76 28 67/44 91 09/24/16 02:45 75 29 110/72 91 09/24/16 02:34 75 27 76/48 09/24/16 02:31 76 25 74/47 09/24/16 02:16 79 21 88/70 09/24/16 02:16 79 21 88/70 09/24/16 02:15 78 23 83/46 09/24/16 02:09 35 09/24/16 02:00 81 19 82/66 88 09/24/16 01:45 82 20 109/78 90 09/24/16 01:30 80 17 100/87 09/24/16 01:15 83 25 99/75 94 09/24/16 01:00 80 29 108/67 94 09/24/16 00:55 81 29 104/69 94 09/24/16 00:50 77 30 106/69 96 09/24/16 00:45 80 28 115/72 96 09/24/16 00:40 80 31 112/78 93 09/24/16 00:35 80 33 116/68 93 09/24/16 00:30 78 33 118/70 96 09/24/16 00:25 77 30 109/65 95 09/24/16 00:20 77 37 100/67 95 09/24/16 00:15 78 25 110/70 92 09/24/16 00:10 75 27 111/76 96 09/24/16 00:05 76 26 110/69 95 09/24/16 00:01 36.8 09/24/16 00:00 76 24 112/69 95 09/23/16 23:59 35 09/23/16 23:59 95 Mechanical Ventilator 35 09/23/16 23:00 35 09/23/16 22:35 35 09/23/16 22:00 91 26 106/49 96 Mechanical Ventilator 35 09/23/16 21:00 93 20 88/50 95 Mechanical Ventilator 35 09/23/16 20:26 35 09/23/16 20:00 35 09/23/16 20:00 Mechanical Ventilator 35 09/23/16 20:00 36.8 95 30 83/48 94 Mechanical Ventilator 35 09/23/16 18:00 89 30 96/50 97 Mechanical Ventilator 09/23/16 17:50 92 119/86 09/23/16 17:00 40 09/23/16 17:00 92 16 106/55 97 Mechanical Ventilator 35 09/23/16 16:00 36.6 94 29 112/55 97 Mechanical Ventilator 35 09/23/16 16:00 97 CPAP 35 Mechanical Ventilator 09/23/16 16:00 35 09/23/16 15:42 94 125/71 09/23/16 15:00 94 29 125/71 98 Mechanical Ventilator 09/23/16 14:17 40 09/23/16 14:00 97 26 106/77 98 09/23/16 13:00 98 30 135/76 95 130/68 09/23/16 12:59 114 145/66 09/23/16 12:00 36.6 103 20 145/66 96 CPAP Mechanical Ventilator 09/23/16 12:00 35 09/23/16 12:00 97 CPAP 35 Mechanical Ventilator 09/23/16 11:40 103 20 154/64 99 CPAP Mechanical Ventilator 09/23/16 11:30 40 09/23/16 11:00 95 30 130/58 93 09/23/16 10:45 94 30 125/55 93 09/23/16 10:30 93 28 132/57 94 09/23/16 10:15 91 28 129/57 97 09/23/16 10:00 89 28 125/58 98 09/23/16 10:00 36.8 89 28 108/79 98 09/23/16 09:45 90 30 115/55 98 Lab Results: Results Past 24 Hours Test 09/23/16 09:51 09/23/16 12:05 09/23/16 14:42 09/23/16 14:58 Range/Units Bedside Glucose (other) 75 70-99 mg/dl Bedside Glucose 83 231 70-90 mg/dl Lactic Acid Level 3.1 0.4-2.0 mmol/L Test 09/23/16 15:28 09/23/16 16:23 09/23/16 17:29 09/23/16 17:54 Range/Units Bedside Glucose 126 90 73 70-90 mg/dl Blood Gas Sample Site Art Line Bedside Blood Gas pH (LAB) 7.26 7.35-7.45 Bedside Blood Gas pCO2 (LAB) 31 35-46 mmHg Bedside Blood Gas pO2 (LAB) 84 80-95 mmHg Bedside Blood Gas HCO3 (LAB) 14 19-24 meq/L Bedside Blood Gas Total CO2 15 24-31 mEq/l Bedside Blood Gas Base Excess (LAB) -13.0 -9-1.8 meq/L Bedside Blood Gas O2 Saturation 95.0 90-95 % Charlie Test NA Oxygen Delivery Device Ventilator Bedside FiO2 35 % Blood Gas PEEP 5 Test 09/23/16 18:13 09/23/16 18:36 09/23/16 20:16 09/23/16 22:03 Range/Units Bedside Glucose 73 148 97 70-90 mg/dl Bedside Glucose (other) 68 70-99 mg/dl Test 09/23/16 22:37 09/23/16 22:57 09/24/16 00:50 09/24/16 02:12 Range/Units Bedside Glucose (other) 120 106 110 70-99 mg/dl Bedside Hemoglobin 13.6 12.0-16.0 g/dl Bedside Hematocrit 40 37-47 % Bedside Blood Gas pH (LAB) 7.31 7.35-7.45 Bedside Blood Gas pCO2 (LAB) 26 35-46 mmHg Bedside Blood Gas pO2 (LAB) 78 80-95 mmHg Bedside Blood Gas HCO3 (LAB) 13 19-24 meq/L Bedside Blood Gas Total CO2 14 24-31 mEq/l Bedside Blood Gas Base Excess (LAB) -13.0 -9-1.8 meq/L Bedside Blood Gas O2 Saturation 95.0 90-95 % Bedside Sodium 136 135-144 mEq/L Bedside Potassium 4.3 3.3-5.0 mEq/L Test 09/24/16 04:26 09/24/16 04:58 09/24/16 05:08 09/24/16 05:10 Range/Units Bedside Glucose (other) 95 70-99 mg/dl Blood Gas Sample Site Art Line Bedside Blood Gas pH (LAB) 7.10 7.35-7.45 Bedside Blood Gas pCO2 (LAB) 20 35-46 mmHg Bedside Blood Gas pO2 (LAB) 87 80-95 mmHg Bedside Blood Gas HCO3 (LAB) 6 19-24 meq/L Bedside Blood Gas Total CO2 7 24-31 mEq/l Bedside Blood Gas Base Excess (LAB) -24.0 -9-1.8 meq/L Bedside Blood Gas O2 Saturation 93.0 90-95 % Charlie Test NA Oxygen Delivery Device Ventilator Bedside Oxygen Rate (breaths/min) 20 Bedside FiO2 35 % Blood Gas Tidal Volume 500 Blood Gas PEEP 5 Creatine Kinase MB Ratio 2.5 0-3.0 Sodium Level 159 136-145 mmol/L Potassium Level 4.9 3.5-5.1 mmol/L Chloride Level 103 98-107 mmol/L Carbon Dioxide Level 45 21-32 mmol/L Anion Gap 3-11 mmol/L Blood Urea Nitrogen 60 7-18 mg/dl Creatinine 2.20 0.60-1.20 mg/dl Est Creatinine Clear Calc Drug Dose 12.5 ml/min Estimated GFR () 22.5 Estimated GFR (Non- 19.4 BUN/Creatinine Ratio 27.3 10-20 Random Glucose 137 70-99 mg/dl Estimated Average Glucose 157 mg/dl Hemoglobin A1c 7.1 4.5-5.6 % Lactic Acid Level 12.5 0.4-2.0 mmol/L Calcium Level < 5.0 8.5-10.1 mg/dl Phosphorus Level 6.5 2.5-4.9 mg/dl Magnesium Level 2.0 1.8-2.4 mg/dl Total Bilirubin 0.6 0.2-1 mg/dl Aspartate Amino Transf (AST/SGOT) 173 15-37 U/L Alanine Aminotransferase (ALT/SGPT) 33 12-78 U/L Alkaline Phosphatase 108 45-117 U/L Total Creatine Kinase 180 26-192 U/L Creatine Kinase MB 4.5 0.5-3.6 ng/ml Troponin I 0.049 0-0.045 ng/ml Total Protein 1.9 6.4-8.2 gm/dl Albumin 0.7 3.4-5.0 gm/dl Globulin 1.2 2.5-4.0 gm/dl Albumin/Globulin Ratio 0.6 0.9-2 Thyroid Stimulating Hormone (TSH) 0.467 0.300-4.500 uIu/ml Free Thyroxine 0.73 0.80-1.60 ng/dl Random Vancomycin Level 8.0 mcg/ml Test 09/24/16 05:35 09/24/16 05:43 09/24/16 05:46 09/24/16 08:19 Range/Units Blood Gas Sample Site Art Line Bedside Blood Gas pH (LAB) 7.44 7.35-7.45 Bedside Blood Gas pCO2 (LAB) 31 35-46 mmHg Bedside Blood Gas pO2 (LAB) 112 80-95 mmHg Bedside Blood Gas HCO3 (LAB) 21 19-24 meq/L Bedside Blood Gas Total CO2 22 24-31 mEq/l Bedside Blood Gas Base Excess (LAB) -3.0 -9-1.8 meq/L Bedside Blood Gas O2 Saturation 99.0 90-95 % Charlie Test NA Oxygen Delivery Device Ventilator Bedside Oxygen Rate (breaths/min) 30 Bedside FiO2 100 % Blood Gas Tidal Volume 500 Blood Gas PEEP 5 Bedside Glucose (other) 78 68 70-99 mg/dl White Blood Count 4.67 4.8-10.8 K/uL Red Blood Count 3.85 4.2-5.4 M/uL Hemoglobin 11.3 12.0-16.0 g/dL Hematocrit 35.4 37-47 % Mean Corpuscular Volume 91.9 80-100 fL Mean Corpuscular Hemoglobin 29.4 25-34 pg Mean Corpuscular Hemoglobin Concent 31.9 32-36 g/dl Platelet Count 157 130-400 K/uL Mean Platelet Volume 10.1 7.4-10.4 fL RDW Standard Deviation 51.2 36.4-46.3 fL RDW Coefficient of Variation 15.1 11.5-14.5 % Neutrophils % (Manual) 61.7 % Lymphocytes % (Manual) 27.0 % Monocytes % (Manual) 3.5 % Metamyelocytes % 6.1 % Myelocytes % 1.7 % Neutrophils # (Manual) 2.88 1.4-6.5 K/uL Total Absolute Neutrophils 2.88 1.4-6.5 K/uL Lymphocytes # (Manual) 1.26 1.2-3.4 K/uL Total Absolute Lymphocytes 1.26 1.2-3.4 K/uL Monocytes # (Manual) 0.16 0.11-0.59 K/uL Metamyelocytes # 0.28 0-0 K/uL Myelocytes # 0.08 0-0 K/uL Toxic Granulation 1+ Giant Platelets 2+ Polychromasia 1+ Echinocytes 1+ Sodium Level 147 136-145 mmol/L Potassium Level 4.0 3.5-5.1 mmol/L Chloride Level 107 98-107 mmol/L Carbon Dioxide Level 21 21-32 mmol/L Anion Gap 19.0 3-11 mmol/L Blood Urea Nitrogen 61 7-18 mg/dl Creatinine 2.50 0.60-1.20 mg/dl Est Creatinine Clear Calc Drug Dose 11.8 ml/min Estimated GFR () 19.2 Estimated GFR (Non- 16.6 BUN/Creatinine Ratio 24.5 10-20 Random Glucose 104 70-99 mg/dl Calcium Level 5.0 8.5-10.1 mg/dl Ionized Calcium 0.74 1.12-1.32 mmol/l Phosphorus Level 8.0 2.5-4.9 mg/dl Magnesium Level 2.0 1.8-2.4 mg/dl
[2016-09-24] MEDS ORDERED: VASOPRESSIN INJ 50 UNITS in SODIUM CHLORIDE 0.9% 500ML 500 ML IV SCH (10:45)
[2016-09-24] MEDS: PANTOprazole INJ 40 MG in SYRINGE 0 ML IV SCH (11:09)
[2016-09-24] MEDS ORDERED: VANCOMYCIN IV ONE (11:45)
[2016-09-24] MEDS ORDERED: DEXTROSE 5% IV ONE (11:45)
[2016-09-24 11:58] LABS: ISTAT ARTERIAL BLOOD GAS HCO3 5 meq/L (19-24); ISTAT ARTERIAL BLOOD GAS PCO2 16 mmHg (35-46); ISTAT ARTERIAL BLOOD GAS PO2 144 mmHg (80-95); ISTAT ARTERIAL BLOOD GAS pH 7.05 (7.35-7.45); ISTAT CARBON DIOXIDE < 5 mEq/l (24-31); ISTAT DELIVERY SYSTEM Ventilator; ISTAT FIO2 60 %; ISTAT PEEP 5; ISTAT RATE 30; ISTAT SITE Art Line; VE 13.9; Vt 500
[2016-09-24] MEDS ORDERED: VANCOMYCIN CONSULT ACTIVE PRN (12:00)
--- NOTE | 2016-09-24 12:08 | Surgery Progress Note ---
Surgery Progress Note Date of Service Sep 24, 2016. Subjective Post OP Day: 2 (s/p ex lap with small bowel enterotomy and removal of gallstone ) Patient had a very eventful evening in which she went into afib with RVR and required cardioversion x 2 and was placed on Amiodarone and had two pressors running for hypotension. 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 Dr. Izquierdo discussed patients status with family and family decided to withdraw care. Objective Vital Signs: Date Time Temp Pulse Resp B/P Pulse Ox O2 Delivery O2 Flow Rate FiO2 09/24/16 09:00 69 30 135/84 98 Mechanical Ventilator 60 09/24/16 08:00 93 Mechanical Ventilator 60 09/24/16 08:00 36.4 76 31 124/82 91 Mechanical Ventilator 60 09/24/16 08:00 60 09/24/16 07:29 60 09/24/16 06:30 73 30 123/63 92 09/24/16 06:15 76 30 92/80 92 09/24/16 06:00 77 24 106/65 95 09/24/16 05:56 60 09/24/16 05:50 77 13 87/60 95 09/24/16 05:49 77 10 60/39 94 09/24/16 05:46 77 13 63/41 96 09/24/16 05:45 76 32 62/41 95 09/24/16 05:30 80 17 117/63 09/24/16 05:18 86 13 109/73 09/24/16 05:15 88 20 80/49 09/24/16 05:00 100 09/24/16 04:49 58 16 47/29 09/24/16 04:45 58 16 39/24 09/24/16 04:43 58 25 39/25 09/24/16 04:41 59 29 45/33 09/24/16 04:31 60 29 82/34 09/24/16 04:30 35 09/24/16 04:30 95 Mechanical Ventilator 35 09/24/16 04:30 61 29 51/34 09/24/16 04:16 64 31 50/34 89 09/24/16 04:15 65 27 50/34 88 09/24/16 04:01 65 16 88/64 89 09/24/16 04:00 67 17 53/36 93 09/24/16 04:00 36.5 09/24/16 03:19 85 26 104/85 83 09/24/16 03:17 74 29 59/39 91 09/24/16 03:16 75 27 58/39 90 09/24/16 03:01 75 26 62/41 97 09/24/16 03:00 75 18 119/74 92 09/24/16 02:46 76 28 67/44 91 09/24/16 02:45 75 29 110/72 91 09/24/16 02:34 75 27 76/48 09/24/16 02:31 76 25 74/47 09/24/16 02:16 79 21 88/70 09/24/16 02:16 79 21 88/70 09/24/16 02:15 78 23 83/46 09/24/16 02:09 35 09/24/16 02:00 81 19 82/66 88 09/24/16 01:45 82 20 109/78 90 09/24/16 01:30 80 17 100/87 09/24/16 01:15 83 25 99/75 94 09/24/16 01:00 80 29 108/67 94 09/24/16 00:55 81 29 104/69 94 09/24/16 00:50 77 30 106/69 96 09/24/16 00:45 80 28 115/72 96 09/24/16 00:40 80 31 112/78 93 09/24/16 00:35 80 33 116/68 93 09/24/16 00:30 78 33 118/70 96 09/24/16 00:25 77 30 109/65 95 09/24/16 00:20 77 37 100/67 95 09/24/16 00:15 78 25 110/70 92 09/24/16 00:10 75 27 111/76 96 09/24/16 00:05 76 26 110/69 95 09/24/16 00:01 36.8 09/24/16 00:00 76 24 112/69 95 09/23/16 23:59 35 09/23/16 23:59 95 Mechanical Ventilator 35 09/23/16 23:00 35 09/23/16 22:35 35 09/23/16 22:00 91 26 106/49 96 Mechanical Ventilator 35 09/23/16 21:00 93 20 88/50 95 Mechanical Ventilator 35 09/23/16 20:26 35 09/23/16 20:00 35 09/23/16 20:00 Mechanical Ventilator 35 09/23/16 20:00 36.8 95 30 83/48 94 Mechanical Ventilator 35 09/23/16 18:00 89 30 96/50 97 Mechanical Ventilator 09/23/16 17:50 92 119/86 09/23/16 17:00 40 09/23/16 17:00 92 16 106/55 97 Mechanical Ventilator 35 09/23/16 16:00 36.6 94 29 112/55 97 Mechanical Ventilator 35 09/23/16 16:00 97 CPAP 35 Mechanical Ventilator 09/23/16 16:00 35 09/23/16 15:42 94 125/71 09/23/16 15:00 94 29 125/71 98 Mechanical Ventilator 09/23/16 14:17 40 09/23/16 14:00 97 26 106/77 98 09/23/16 13:00 98 30 135/76 95 130/68 09/23/16 12:59 114 145/66 Physical Exam: nasogastric drainage General Appearance: + moderate distress Head: + pertinent finding (+ET tube present, +NGT present) Neck: trachea midline Respiratory/Chest: lungs clear, no respiratory distress, no accessory muscle use Cardiovascular: regular rate, rhythm Abdomen: soft Incision(s): clean, dry, intact Extremities: + pedal edema, + pertinent finding (+ 1 edema) Laboratory Results: Results Past 24 Hours Test 09/23/16 12:05 09/23/16 14:42 09/23/16 14:58 09/23/16 15:28 Range/Units Bedside Glucose 83 231 126 70-90 mg/dl Lactic Acid Level 3.1 0.4-2.0 mmol/L Test 09/23/16 16:23 09/23/16 17:29 09/23/16 17:54 09/23/16 18:13 Range/Units Bedside Glucose 90 73 73 70-90 mg/dl Blood Gas Sample Site Art Line Bedside Blood Gas pH (LAB) 7.26 7.35-7.45 Bedside Blood Gas pCO2 (LAB) 31 35-46 mmHg Bedside Blood Gas pO2 (LAB) 84 80-95 mmHg Bedside Blood Gas HCO3 (LAB) 14 19-24 meq/L Bedside Blood Gas Total CO2 15 24-31 mEq/l Bedside Blood Gas Base Excess (LAB) -13.0 -9-1.8 meq/L Bedside Blood Gas O2 Saturation 95.0 90-95 % Charlie Test NA Oxygen Delivery Device Ventilator Bedside FiO2 35 % Blood Gas PEEP 5 Test 09/23/16 18:36 09/23/16 20:16 09/23/16 22:03 09/23/16 22:37 Range/Units Bedside Glucose 148 97 70-90 mg/dl Bedside Glucose (other) 68 120 70-99 mg/dl Test 09/23/16 22:57 09/24/16 00:50 09/24/16 02:12 09/24/16 04:26 Range/Units Bedside Hemoglobin 13.6 12.0-16.0 g/dl Bedside Hematocrit 40 37-47 % Bedside Blood Gas pH (LAB) 7.31 7.35-7.45 Bedside Blood Gas pCO2 (LAB) 26 35-46 mmHg Bedside Blood Gas pO2 (LAB) 78 80-95 mmHg Bedside Blood Gas HCO3 (LAB) 13 19-24 meq/L Bedside Blood Gas Total CO2 14 24-31 mEq/l Bedside Blood Gas Base Excess (LAB) -13.0 -9-1.8 meq/L Bedside Blood Gas O2 Saturation 95.0 90-95 % Bedside Sodium 136 135-144 mEq/L Bedside Potassium 4.3 3.3-5.0 mEq/L Bedside Glucose (other) 106 110 95 70-99 mg/dl Test 09/24/16 04:58 09/24/16 05:08 09/24/16 05:10 09/24/16 05:35 Range/Units Blood Gas Sample Site Art Line Art Line Bedside Blood Gas pH (LAB) 7.10 7.44 7.35-7.45 Bedside Blood Gas pCO2 (LAB) 20 31 35-46 mmHg Bedside Blood Gas pO2 (LAB) 87 112 80-95 mmHg Bedside Blood Gas HCO3 (LAB) 6 21 19-24 meq/L Bedside Blood Gas Total CO2 7 22 24-31 mEq/l Bedside Blood Gas Base Excess (LAB) -24.0 -3.0 -9-1.8 meq/L Bedside Blood Gas O2 Saturation 93.0 99.0 90-95 % Charlie Test NA NA Oxygen Delivery Device Ventilator Ventilator Bedside Oxygen Rate (breaths/min) 20 30 Bedside FiO2 35 100 % Blood Gas Tidal Volume 500 500 Blood Gas PEEP 5 5 Creatine Kinase MB Ratio 2.5 0-3.0 Sodium Level 159 136-145 mmol/L Potassium Level 4.9 3.5-5.1 mmol/L Chloride Level 103 98-107 mmol/L Carbon Dioxide Level 45 21-32 mmol/L Anion Gap 3-11 mmol/L Blood Urea Nitrogen 60 7-18 mg/dl Creatinine 2.20 0.60-1.20 mg/dl Est Creatinine Clear Calc Drug Dose 12.5 ml/min Estimated GFR () 22.5 Estimated GFR (Non- 19.4 BUN/Creatinine Ratio 27.3 10-20 Random Glucose 137 70-99 mg/dl Estimated Average Glucose 157 mg/dl Hemoglobin A1c 7.1 4.5-5.6 % Lactic Acid Level 12.5 0.4-2.0 mmol/L Calcium Level < 5.0 8.5-10.1 mg/dl Phosphorus Level 6.5 2.5-4.9 mg/dl Magnesium Level 2.0 1.8-2.4 mg/dl Total Bilirubin 0.6 0.2-1 mg/dl Aspartate Amino Transf (AST/SGOT) 173 15-37 U/L Alanine Aminotransferase (ALT/SGPT) 33 12-78 U/L Alkaline Phosphatase 108 45-117 U/L Total Creatine Kinase 180 26-192 U/L Creatine Kinase MB 4.5 0.5-3.6 ng/ml Troponin I 0.049 0-0.045 ng/ml Total Protein 1.9 6.4-8.2 gm/dl Albumin 0.7 3.4-5.0 gm/dl Globulin 1.2 2.5-4.0 gm/dl Albumin/Globulin Ratio 0.6 0.9-2 Thyroid Stimulating Hormone (TSH) 0.467 0.300-4.500 uIu/ml Free Thyroxine 0.73 0.80-1.60 ng/dl Random Vancomycin Level 8.0 mcg/ml Test 09/24/16 05:43 09/24/16 05:46 09/24/16 08:19 09/24/16 10:54 Range/Units Bedside Glucose (other) 78 68 78 70-99 mg/dl White Blood Count 4.67 4.8-10.8 K/uL Red Blood Count 3.85 4.2-5.4 M/uL Hemoglobin 11.3 12.0-16.0 g/dL Hematocrit 35.4 37-47 % Mean Corpuscular Volume 91.9 80-100 fL Mean Corpuscular Hemoglobin 29.4 25-34 pg Mean Corpuscular Hemoglobin Concent 31.9 32-36 g/dl Platelet Count 157 130-400 K/uL Mean Platelet Volume 10.1 7.4-10.4 fL RDW Standard Deviation 51.2 36.4-46.3 fL RDW Coefficient of Variation 15.1 11.5-14.5 % Neutrophils % (Manual) 61.7 % Lymphocytes % (Manual) 27.0 % Monocytes % (Manual) 3.5 % Metamyelocytes % 6.1 % Myelocytes % 1.7 % Neutrophils # (Manual) 2.88 1.4-6.5 K/uL Total Absolute Neutrophils 2.88 1.4-6.5 K/uL Lymphocytes # (Manual) 1.26 1.2-3.4 K/uL Total Absolute Lymphocytes 1.26 1.2-3.4 K/uL Monocytes # (Manual) 0.16 0.11-0.59 K/uL Metamyelocytes # 0.28 0-0 K/uL Myelocytes # 0.08 0-0 K/uL Toxic Granulation 1+ Giant Platelets 2+ Polychromasia 1+ Echinocytes 1+ Sodium Level 147 136-145 mmol/L Potassium Level 4.0 3.5-5.1 mmol/L Chloride Level 107 98-107 mmol/L Carbon Dioxide Level 21 21-32 mmol/L Anion Gap 19.0 3-11 mmol/L Blood Urea Nitrogen 61 7-18 mg/dl Creatinine 2.50 0.60-1.20 mg/dl Est Creatinine Clear Calc Drug Dose 11.8 ml/min Estimated GFR () 19.2 Estimated GFR (Non- 16.6 BUN/Creatinine Ratio 24.5 10-20 Random Glucose 104 70-99 mg/dl Calcium Level 5.0 8.5-10.1 mg/dl Ionized Calcium 0.74 1.12-1.32 mmol/l Phosphorus Level 8.0 2.5-4.9 mg/dl Magnesium Level 2.0 1.8-2.4 mg/dl Test 09/24/16 11:39 09/24/16 12:00 Range/Units Blood Gas Sample Site Art Line Bedside Blood Gas pH (LAB) 7.05 7.35-7.45 Bedside Blood Gas pCO2 (LAB) 16 35-46 mmHg Bedside Blood Gas pO2 (LAB) 144 80-95 mmHg Bedside Blood Gas HCO3 (LAB) 5 19-24 meq/L Bedside Blood Gas Total CO2 < 5 24-31 mEq/l Bedside Blood Gas Base Excess (LAB) -26.0 -9-1.8 meq/L Bedside Blood Gas O2 Saturation 98.0 90-95 % Charlie Test NA Oxygen Delivery Device Ventilator Bedside Oxygen Rate (breaths/min) 30 Blood Gas Minute Ventilation 13.9 Bedside FiO2 60 % Blood Gas Tidal Volume 500 Blood Gas PEEP 5 Assessment & Plan POD # 2 s/p exploratory laparotomy and enterotomy with removal of gallstone - Hypotensive with episodes of Afib with RVR overnight requiring cardioversion x 2 and persistent pressor support and amiodarone - Lactic acid 12.5 (4.3 pre-operatively) - Acute Kidney Injury due to Septic Shock BUN/Creatinine 61/2.50 - Abdominal exam soft, incision c/d/i - Family decided to withdraw support When entered room patient was still ventilated and heart rate regular at 80 however began to drop to HR of 30 and 25. Was extubated and all IVs discontinued. Patient at 1200 on 09/24/2016 I have discussed this patient with Dr. Brown Notified by ICU that pt . Abdominal exam was benign and she had bowel movements but had coded last night with episodes of a fib with rapid ventricular response requiring cardioversion and persistent need for pressor support. Family elected to withdraw support given overall poor prognosis (large liver neuroendocrine tumor, severe aortic stenosis, malnutrition, acute kidney injury).
--- NOTE | 2016-09-24 12:37 | Discharge Summary ---
Discharge Summary Date of Service Sep 24, 2016. Discharge Summary Admission Date: Sep 22, 2016 at 18:21 Discharge Disposition: Principal Diagnosis: Acute renal Insufficiency, Gall stone Ileus Procedures: S/P Explorative laparotomy, enterotomy and stone removal Renal USD: 1. No hydronephrosis. 2. Moderate to marked renal atrophy. ECHO: * Ejection Fraction = 50-55%. 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 * Doppler interrogation and 2D imaging are discordant. Severe aortic stenosis is suspected. * Grade I diastolic dysfunction, (abnormal relaxation pattern). CT ABD: 1. Findings consistent with a high-grade small bowel obstruction due to an impacted gallstone within the terminal ileum, just proximal to the ileocecal valve. 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 The findings represent gallstone ileus. Surgical consultation is recommended. 2. 12.9 x 7.7 cm mass-like hypodense focus within the liver. This may reflect fatty infiltration. A mass could appear similar. A follow-up nonemergent MRI of the liver is recommended. 3. 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 No rupture. 4. Small right pleural effusion. 5. Moderate sized hiatal hernia. 6. Gas within the bladder, a nonspecific finding which may be related to recent instrumentation. Consultations: Surgery, Relations Manager, Nephrology Pending Studies/Follow-Up: Patient Admission Information HPI (per Admitting provider): This is an 89 y/o female with PMHx of Insulin-dependent DM 2, HTN, Dyslipidemia and other problems as outlined below who presented to the ED c/o abdominal pain for the past few days. Per previous documentation pt describes the pain as 5/10 abd pain. Her sxs are assoc with N/V. Pt has a recent history of hepatic neuroendocrine tumor which was resected at [facility] in July. Pt was in the hospital for 6 days as her post-op course was complicated by episode of Afib and uncontrolled glucose. Since being discharged patient had been dong well until a few days ago when she developed abd pain. In the ED, vitals are stable. Pt is afebrile with mild leukocytosis and lactic acid 4.3. Creat 2.1. glucose 53. Abd/pelvis CT + gallstone ileus. Pt was seen by surgeon (Dr. Brown ) in the ED and taken emergently to the OR for ex lap with enterotomy and stone removal. Patient remained intubated post-operatively and will be monitored in the ICU overnight. Physical Exam (per Admitting): General Appearance: WD/WN, no apparent distress, + pertinent finding (Pt is laying comfortably in bed; intubated ) Head: normocephalic, atraumatic Eyes: normal inspection Neck: supple Respiratory/Chest: chest non-tender, lungs clear (auscultated anteriorly), normal breath sounds, no respiratory distress Cardiovascular: regular rate, rhythm, no edema, no murmur Abdomen/GI: normal bowel sounds, soft, + pertinent finding (surgical dressing in place) Extremities/Musculoskelatal: normal inspection, no pedal edema Neurologic/Psych: + pertinent finding (sedated) Skin: warm/dry, + pallor Hospital Course GALLSTONE ILEUS: Likely SEPTIC SHOCK: S/P Explorative laparotomy, enterotomy and stone removal POD #2 Patient presented with abd pain, nausea, vomiting, decreased oral intake Continue broad spectrum IV antibiotics Follow up cultures: No growth to date Surgery on board Monitor Lactic acid Respiratory support per critical care Patient despite aggressive management with Intubation, pressor support, IV fluids and electrolyte correction Afib: On amiodarone TERRANCE: Likely ATN secondary to septic shock Baseline Cr: 0.8 Cr levels:2.5 today Third spacing Avoid nephrotoxic agents Appreciate Nephrology input On Albumin, Pressors Renal USD: No hydronephrosis Hypocalcemia: In setting of lactic acidosis and sepsis. Continue replacement of calcium per Nephrology Monitor calcium levels Hypoglycemia: H/O DM II Last A1C 7.1 Hold metformin, glimepiride and Prandin pharmacy consulted for glycemic mgmt monitor BSG AC HS Continue D5W HEPATIC NEUROENDOCRINE TUMOR s/p resection Jul 2015 @ [facility] continue Sandostatin Follows with [facility] oncology HTN Hold HTN meds currently on pressors continue to monitor Possible Severe Aortic Stenosis ECHO as below DYSLIPIDEMIA Stable DVT PX: Heparin SQ GI Px: Continue Protonix CODE STATUS FULL CODE DISPOSITION: Patient while receiving treatment in ICU PROCEDURES: Renal USD: 1. No hydronephrosis. 2. Moderate to marked renal atrophy. ECHO: * Ejection Fraction = 50-55%. 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 * Doppler interrogation and 2D imaging are discordant. Severe aortic stenosis is suspected. * Grade I diastolic dysfunction, (abnormal relaxation pattern). Total time spent on discharge = This includes examination of the patient, discharge planning, medication reconciliation, and communication with other providers. Discharge Instructions Patient
[2016-09-24] MEDS ORDERED: SODIUM CHLORIDE 0.9% 10ML FLUSH IV ONE (13:44)
== END 2016-09-24 13:45 | disposition expired | DRG 344 ==
LOC: EDBD 11:16 → C.EDB 11:18 → C.MSICU 18:21
PROVIDERS: ADMIT Internal Medicine; ATTEND Internal Medicine
PROC: 5A1945Z Respiratory Ventilation, 24-96 Consecutive Hours (ICD-10-PCS; 2016-09-22)
PROC: 0DCB0ZZ Extirpation of Matter from Ileum, Open Approach (ICD-10-PCS; 2016-09-22)
PROC: 0BH13EZ Insertion of Endotracheal Airway into Trachea, Percutaneous Approach (ICD-10-PCS; 2016-09-22)
PROC: 05HY32Z Insertion of Monitoring Device into Upper Vein, Percutaneous Approach (ICD-10-PCS; principal; 2016-09-22 10:15)
PROC: 05HM33Z Insertion of Infusion Device into Right Internal Jugular Vein, Percutaneous Approach (ICD-10-PCS; principal; 2016-09-22 10:15)
PROC: 5A2204Z Restoration of Cardiac Rhythm, Single (ICD-10-PCS; 2016-09-23)
DX: K56.3 Gallstone ileus (principal); A41.9 Sepsis, unspecified organism; T81.12XA Postprocedural septic shock, initial encounter; N17.0 Acute kidney failure with tubular necrosis; C23 Malignant neoplasm of gallbladder; C7A.8 Other malignant neuroendocrine tumors; E86.0 Dehydration; I10 Essential (primary) hypertension; E78.5 Hyperlipidemia, unspecified; I35.0 Nonrheumatic aortic (valve) stenosis; E83.51 Hypocalcemia; E11.649 Type 2 diabetes mellitus with hypoglycemia without coma; I95.9 Hypotension, unspecified; I48.91 Unspecified atrial fibrillation; Y83.8 Other surgical procedures as the cause of abnormal reaction of the patient, or of later complication, without mention of misadventure at the time of the procedure; Y92.239 Unspecified place in hospital as the place of occurrence of the external cause; Z85.3 Personal history of malignant neoplasm of breast; Z85.42 Personal history of malignant neoplasm of other parts of uterus; Z86.79 Personal history of other diseases of the circulatory system; Z90.49 Acquired absence of other specified parts of digestive tract; Z90.10 Acquired absence of unspecified breast and nipple; Z90.710 Acquired absence of both cervix and uterus; Z98.890 Other specified postprocedural states; Z79.4 Long term (current) use of insulin; Z79.82 Long term (current) use of aspirin; Z79.84 Long term (current) use of oral hypoglycemic drugs; Z79.899 Other long term (current) drug therapy